=== PATIENT | female | born 1965 | race Caucasian/White ===

== ENCOUNTER 2017-05-10 19:30 | Outpatient (CLI) | payer BC | END 2017-05-10 19:31 | disposition home or self-care (01) | LOC: SLEEPLAB 19:30 | PROVIDERS: ATTEND Family Medicine | DX: G47.33 Obstructive sleep apnea (adult) (pediatric) (principal); G47.9 Sleep disorder, unspecified; F51.9 Sleep disorder not due to a substance or known physiological condition, unspecified; F41.8 Other specified anxiety disorders; R51 Headache; R06.83 Snoring | CPT/HCPCS: 95810 ==

== ENCOUNTER 2017-06-03 20:30 | Outpatient (CLI) | payer BC | END 2017-06-03 20:31 | disposition home or self-care (01) | LOC: SLEEPLAB 20:30 | PROVIDERS: ATTEND Family Medicine | DX: G47.33 Obstructive sleep apnea (adult) (pediatric) (principal); F51.9 Sleep disorder not due to a substance or known physiological condition, unspecified; F41.8 Other specified anxiety disorders; R51 Headache | CPT/HCPCS: 95811 ==

== ENCOUNTER 2017-06-06 09:30 | Inpatient (IN) | payer BC ==
[2017-06-06 10:03] VITALS: BMI 44.6
--- NOTE | 2017-06-06 16:52 | HP ---
HISTORY OF PRESENT ILLNESS: Ms. Gomez is a 52-year-old female, who is known to our practice, as she had an L4-5 laminectomy, removal of right synovial cystectomy in 12/2015, which was complicated with a postoperative infection in January that required washout operation. The pain was initially better, t hen had gotten worse over the past 6 months. She had pain, numbness and tingling in the L5 dermatome on the right that is constant. The pain is made worse with lying flat and when walking. The pain i s made somewhat better with gabapentin and analgesics. She has had physical therapy and several inje ctions including an L4-5 and TFESI and potential lysis of adhesions on 03/08/2017 as well as past SI joint injections at L5-S1 TFESI injections with Dr. Duque that has given little relief. IMAGING: MRI of the lumbar spine at [facility], flexion, extension views x-rays at [facility] [place]. REVIEW OF SYSTEMS: Ten-point review of systems is completed and is otherwise negative unless stated in the HPI. PAST MEDICAL HISTORY: Nephrolithiasis, depression, short bowel syndrome, hypertension, Crohn's disea se. Neurovascular cavernous malformation, chronic back pain, iron deficiency anemia, [facility], admitted on 11/24/2016. PAST SURGICAL HISTORY: Multiple sinus surgeries in the , colonoscopy in the gallbladder 1 999, section in 2000, gastric bypass with Dr. Avilez in 2008, exploratory laparotomy, intest inal stricture in 2009, gastric bypass reversal in 2010, EGD and colonoscopy, single ulcer terminal i leum repeat in [address] Pham in 02/2014. Decompressive laminectomy L4-L5 with resection of L 4-L5, synovial cyst. Dr. Muniz in 12/17/2015, reopening of lumbar incision due to postop infecti on on 06/15/2016, removal of scar tissue from previous back surgery by Dr. Duque on 01/29/2017; c audal VICTOR M, TFESI bilateral L5-S1, TFESI, bilateral L5-S1. Right SI joint injection and left SI joint injection. HOSPITALIZATIONS: For surgeries, lumbar cyst removal in 12/2015 surgery due to the hospital infectio n in 01/2016. PSYCHIATRIC: Admitted in 10/2016. FAMILY HISTORY: Father is alive, prostate cancer, obesity, diagnosis of hypertension. Mother is ali ve, has diagnosis of breast cancer. Siblings are alive, diagnosed with nothing. Children are alive, has 1 son and has ADHD. Family history of migraines and cancer. SOCIAL HISTORY: The patient is a former smoker. She quit in 1998. She smokes less than a half pack a day. She denies using alcohol or any illicit drugs. She is . MEDICATIONS: 1. Pantoprazole sodium 40 mg tablet delayed release 1 tablet orally once a day. 2. Potassium gluconate 595 mg capsule 2 orally. 3. Tizanidine 4 mg tablet 1 tablet orally at bedtime. 4. Creon 36,000 unit capsule delayed release particles 2 tabs orally q.i.d. 5. Gabapentin 300 mg capsule 1 capsule 3 times a day. 6. Vitamin B1 100 mg tablet 1 tablet orally once a day. 7. Vitamin D3 5000 units once a day. 8. Multivitamin adult oral only. 9. Hydrochlorothiazide 12.5 mg capsule 1 capsule once a day. 10. Trazodone HCL 50 mg capsule take 3 capsules by mouth as needed for insomnia. 11. Mirtazapine 15 mg tablet 1 tablet at bedtime orally once a day. 12. Lyrica 75 mg capsule 1 capsule orally with twice a day. 13. Adderall 20 mg capsule extended release 24 hour 1 capsule in the morning orally once a day. 14. Adderall 10 mg tablet 1 tablet in the afternoon orally once a day. 15. Tylenol with Codeine #4 300-60 mg capsule 1-2 tablets orally q.8 hours p.r.n. for pain. 16. Flonase 50 mcg/ACT suspension 1 spray in each nostril nasally once a day. MEDICATION LIST: Reviewed and reconciled with the patient. ALLERGIES: LEVOFLOXACIN hives, swelling, and ADHESIVE bandages and blisters. PHYSICAL EXAMINATION: HEENT: Normocephalic, atraumatic. Hearing intact. Moist mucous membranes. Trachea midline. EYES: Pupils are equal and reactive to light. Extraocular muscles are intact. Sclerae is white, no nicteric deficits. PSYCHIATRIC: Normal mood and affect. CARDIOVASCULAR/CARDIOPULMONARY: No cyanosis or clubbing noted. Intact pedal pulses bilaterally. MUSCULOSKELETAL: 4/5 strength in the right tibialis anterior, extensor hallucis longus. Sensory def icits in the right L5 dermatome, nontender to palpation in the midline lumbar spine. RESPIRATORY: Even respirations, good effort in all lung peck, sound clear with no wheezing or crac kles. NEUROLOGIC: Cranial nerves II-XII are grossly intact. Speech is fluent. She answers to my question s appropriately. ASSESSMENT: 1. Lumbago with sciatica of the right side. 2. Chronic lumbar radiculopathy. PLAN: Dr. Muniz discussed at length with the operation redo laminectomy L4-L5 with a TLIF and sy novial cyst removal. She is in agreement with that plan. The risks, benefits, and another possible complications of surgery were discussed and the patient was fully aware of the risks of surgery. She would like to proceed with neurosurgical intervention. MRI and x-rays are at [facility]. If t here are any further questions, please feel free to contact Neurosurgery.
[2017-07-03] MEDS ORDERED: CEFAZOLIN/Water 2 GM/20 ML SYRINGE ONE (06:00)
[2017-07-03] MEDS ORDERED: Famotidine/PF 20 mg/2ml Vial ONE (06:14)
[2017-07-03] MEDS ORDERED: Bupivacaine/Epinephrine 0.25% 30 ML VIAL ONE (06:16)
[2017-07-03] MEDS ORDERED: Thrombin 5000 UNITS/5 ML VIAL ONE (06:16)
[2017-07-03] MEDS ORDERED: Sodium Chloride 0.9% 20 ML ONE (06:16)
[2017-07-03] MEDS ORDERED: Vecuronium 10 MG VIAL ONE ×2 (06:45→09:02)
[2017-07-03] MEDS ORDERED: Albumin 5% 0 ML ONE (06:46)
[2017-07-03] MEDS ORDERED: Midazolam HCl 2 mg/2 ml Vial ONE ×2 (06:49→12:57)
[2017-07-03] MEDS ORDERED: Fentanyl 250 MCG/5 ML VIAL ONE (07:06)
[2017-07-03] MEDS ORDERED: Lidocaine 1% PF 5 ML VIAL ONE (09:02)
[2017-07-03] MEDS ORDERED: Glycopyrrolate 0.2 MG/ML 5 ML SYRINGE ONE (09:02)
[2017-07-03] MEDS ORDERED: Propofol 200 MG/20 ML VIAL ONE (09:02)
[2017-07-03] MEDS ORDERED: Ondansetron HCl/PF 4 MG/2 ML Vial ONE (09:02)
[2017-07-03] MEDS ORDERED: Dexamethasone 20 MG/5 ML VIAL ONE (09:02)
[2017-07-03] MEDS ORDERED: Metoclopramide HCl 10 MG/2 ML VIAL ONE (09:02)
[2017-07-03] MEDS ORDERED: Fentanyl 100 MCG/2 ML VIAL ONE ×4 (09:51→13:33)
[2017-07-03] MEDS ORDERED: HYDROmorphone 0.5 MG/0.5 ML SYRINGE ONE ×4 (12:19→14:13)
[2017-07-03] MEDS ORDERED: Cyclobenzaprine 10 MG TAB PO PRN (12:43)
[2017-07-03] MEDS ORDERED: traMADol HCl 50 MG TAB PO PRN (12:43)
[2017-07-03] MEDS ORDERED: Acetaminophen/Codeine 30-300mg Tablet PO PRN (12:43)
[2017-07-03] MEDS ORDERED: Ondansetron HCl/PF 4 MG/2 ML Vial IVP PRN ×2 (12:43→13:08)
[2017-07-03] MEDS ORDERED: Morphine 4 MG/ML VIAL SLOW IVP PRN (12:43)
[2017-07-03] MEDS ORDERED: HYDROmorphone 2 MG/ML VIAL SLOW IVP PRN (13:08)
[2017-07-03] MEDS ORDERED: Morphine Sulfate 2 MG/ML SYRINGE SLOW IVP PRN (13:08)
[2017-07-03] MEDS ORDERED: Promethazine HCl 25 MG/ML VIAL SLOW IVP PRN (13:08)
[2017-07-03] MEDS ORDERED: Meperidine HCl/PF 25 MG/ML VIAL SLOW IVP PRN (13:08)
[2017-07-03] MEDS ORDERED: Promethazine HCl 25 MG/ML VIAL IM PRN (13:08)
--- NOTE | 2017-07-03 13:16 | OP ---
DATE OF PROCEDURE: 07/03/2017 SURGEON: Alexandra Muniz M.D. SALES PERFORMANCE ANALYST: Joseph Hines PA-C PREOPERATIVE INDICATION: Treat pain, prevent neurological deterioration. PREOPERATIVE DIAGNOSES: Unstable spondylolisthesis L4-L5, bilateral synovial cyst formation prior to surgery L4-L5, L5 radiculopathies, right greater than left. POSTOPERATIVE DIAGNOSES: Unstable spondylolisthesis L4-L5, bilateral synovial cyst formation prior t o surgery L4-L5, L5 radiculopathies, right greater than left. PROCEDURES: Reopening lumbar incision, repeat decompression L4-L5 with laminectomy, medial facetecto my, foraminotomy, transforaminal lumbar interbody arthrodesis L4-L5, placement of intervertebral biom echanical device L4-L5, pedicle screw and dionne instrumentation and posterolateral arthrodesis L4-L5, l ocal morselized autograft, morselized Allograft, operating microscope. PREOPERATIVE MEDICATIONS: Ancef 2 grams IV. DRAIN NUMBER: Zero. DRAIN TYPE: None. OPERATIVE DICTATION: The patient was brought to the operating room. General endotracheal anesthesia was induced. The patient was positioned prone on the operating table on the Anand frame with appr opriate padding for the chest and hips. A lateral fluoro radiograph confirmed that the previous inci davina would give us access to the L4-5 interval of the lumbosacral spine. The lumbar skin was sterile ly prepped and draped. We opened with a 10 blade knife and controlled bleeding with bipolar and mono polar cautery. We used monopolar cautery to dissect through subcutaneous scar tissue to thoracodorsa l fascia. We incised the fascia in the midline and reflected the paraspinal muscles and scar tissue off the spinous process of L3 and L3-L4 facet joints and L4 and L4-L5 facet joints and the top of L5. A lateral fluoro radiograph confirmed the levels upon which we were operating. A self-retaining re tractor was placed. We carried our dissection over the facet joints to identify the L4 and L5 transv erse processes bilaterally. We then used an angle curet on separate scar tissue from the confines of the laminectomy. The operative microscope was brought into the field. Under microscopic magnification using microsurgical techniques, we widened our laminectomy defect. W e performed medial facetectomy at L3-L4 and L4-L5. We identified the L4 nerve root from the takeoff from the dura all the way out the foramen. In a similar fashion, we identified the L5 nerve root and scar tissue followed and performed foraminotomies there as well. We turned our attention to arthrod esis. We removed the entire facet joint on the right at L4-L5 and through the facetectomy and wide f oraminotomy. We accessed the intervertebral space. We removed disk contents using curettes and meng eurs. We measured the height of the L4-L5 interspace with a bone rasp to 11 mm. We prepared the end plates for grafting with curets. An 11 mm PEEK graft was brought into the field. Our laminectomy an d facetectomy bone was carefully morcellized on the back table added to demineralized bone matrix and uses infuses substrate. We packed PEEK graft with the fusion substrate and advanced into the inters paces under radiographic guidance to the appropriate depth. We turned our attention to pedicle screw instrumentation. The operative microscope was taken back out of the field. Using bony anatomic radha dmarks, palpation of the medial portion of the pedicles and lateral fluoro radiograph as a guide, we chose entry points for pedicle screws at L4 and L5 bilaterally. We started our trajectories with by drilling our entry points. We used the bone awl to create trajectories through the pedicles and then we tapped these trajectories using a 5.5 mm tap. We placed 6.5 mm diameter screws at L4 and L5 bila terally. A 360 degree image set was generated with our isocenter C-arm. This showed adequate positi on of all our instrumentation. We irrigated copiously with bacitracin irrigation. We brought rods d own into the screw heads and tightened caps over the rods. Using esbibl-[id number] mechanism, we ensured adequate tightness. We decorticated the transverse processes of L4 and L5 bilaterally and l eft demineralized bone matrix and morselized autograft over the decorticated bone as our posterolater al fusion substrate. Vancomycin powder was added to the wound. We ensured that the L4 nerve roots w ere well decompressed after applying some compression before final tightening of the screws. We clos ed the wound in anatomic layers. We applied a sterile dressing. This was a clean case and no contam ination.
[2017-07-03] MEDS ORDERED: diphenhydrAMINE 50 MG/ML VIAL ONE (13:41)
[2017-07-03] MEDS ORDERED: Loperamide HCl 2 MG CAP PO PRN (13:50)
[2017-07-03] MEDS: Pancrelipase DR 12000 1 CAP PO SCH ×3 (15:27→21:39)
[2017-07-03] MEDS: CEFAZOLIN/Water 2 GM/20 ML SYRINGE SLOW IVP SCH ×2 (15:27→21:02)
[2017-07-03] MEDS: Sodium Chloride 0.9% 1,000 ML IV SCH (15:27)
[2017-07-03] MEDS: Morphine 4 MG/ML VIAL SLOW IVP PRN ×3 (15:41→21:02)
[2017-07-03] MEDS: Acetaminophen/Codeine 30-300mg Tablet PO PRN ×2 (17:56→21:01)
[2017-07-03] MEDS: Mirtazapine 15 MG TAB PO SCH (21:00)
[2017-07-03] MEDS: Folic Acid 1 MG TAB PO SCH (21:00)
[2017-07-03] MEDS ORDERED: HYDROCODONE BITARTRATE 20 MG PO SCH (21:00)
[2017-07-03] MEDS: traZODone HCl 150 MG TAB PO SCH (21:00)
[2017-07-03] MEDS: hydrOXYzine 25 MG TAB PO SCH (21:01)
[2017-07-03] MEDS: Pregabalin 75 MG CAP PO SCH (21:01)
[2017-07-03] MEDS: Potassium Chloride 8 MEQ TAB PO SCH (21:39)
[2017-07-04] MEDS: Acetaminophen/Codeine 30-300mg Tablet PO PRN ×5 (00:36→23:49)
[2017-07-04] MEDS: Morphine 4 MG/ML VIAL SLOW IVP PRN ×4 (00:36→15:10)
[2017-07-04] MEDS: Sodium Chloride 0.9% 1,000 ML IV SCH ×2 (03:06→14:34)
--- NOTE | 2017-07-04 06:30 | PRG ---
DATE OF SERVICE: 07/04/2017 Ms. Gomez is a 52-year-old female who I saw in her room this morning. She is status post 1 day from a lumbar laminectomy and fusion at L4-L5. She has been doing well overnight and her vital signs hav e been stable and there have been no acute events. Today I expect her to work with physical therapy and I talked to her about the importance of ambulating as much as possible. Our goal is to have her walk at least 300 feet in the hallways. She has an LSO brace on that she received yesterday when she got to the 3rd floor. She is able to tolerate regular diet and her pain is well controlled with eric n medication. If she does well with physical therapy today, she is concerned about controlling the p ain states she would like to stay until tomorrow morning. If there are any further questions, please feel free to contact Neurosurgery.
[2017-07-04] MEDS ORDERED: CEFAZOLIN/Water 2 GM/20 ML SYRINGE SLOW IVP SCH (07:00)
[2017-07-04] MEDS ORDERED: AMPHETAMINE SULFATE PO SCH (09:00)
[2017-07-04] MEDS: Hydrochlorothiazide 25 MG TAB PO SCH (09:30)
[2017-07-04] MEDS: Pancrelipase DR 12000 1 CAP PO SCH ×4 (09:31→22:00)
[2017-07-04] MEDS: Pregabalin 75 MG CAP PO SCH ×2 (09:31→21:56)
--- NOTE | 2017-07-04 11:44 | PRG ---
DATE OF SERVICE: 07/04/2017 Neurosurgery progress note SUBJECTIVE: I saw Ms. Gomez this morning in her hospital room. She is 1 day out from a repeat deco mpression at L4-L5 along with transforaminal lumbar interbody arthrodesis at that interspace. [facility], we noted some significant instability at that joint with very wide facets and exuberant synoviu m. We dissected all the nerves free, we decompressed well and then fixed her instability. Overnight, her vitals has been stable. T-max has been 99.7. After one of her previous operation, lang parker developed a postoperative infection, so we will be watching carefully. Neurologically, she is well . Today, she is going to work with physical therapy and she is not quite ready for independence or a ctivities of daily living yet. Anticipate discharge tomorrow.
[2017-07-04] MEDS: hydrOXYzine 25 MG TAB PO SCH (21:50)
[2017-07-04] MEDS: traZODone HCl 150 MG TAB PO SCH (21:57)
[2017-07-04] MEDS: Mirtazapine 15 MG TAB PO SCH (21:57)
[2017-07-04] MEDS: Potassium Chloride 8 MEQ TAB PO SCH (22:01)
[2017-07-04] MEDS: Folic Acid 1 MG TAB PO SCH (22:01)
[2017-07-05] MEDS: Morphine 4 MG/ML VIAL SLOW IVP PRN ×4 (04:52→17:23)
[2017-07-05] MEDS: Sodium Chloride 0.9% 1,000 ML IV SCH ×2 (04:56→17:24)
[2017-07-05] MEDS: Acetaminophen/Codeine 30-300mg Tablet PO PRN ×5 (06:18→22:23)
--- NOTE | 2017-07-05 07:02 | PRG ---
DATE OF SERVICE: 07/05/2017 Ms. Gomez is a 52-year-old female I saw in her room this morning. She is status post from a lumbar decompression and fusion at L4-L5. She has been doing well overnight; however, she did have some eric n early this morning that continued, which she is being treated with morphine and Tylenol #3. I enco uraged her to get up and walk around as much as possible. She will let us know if she is interested in leaving the hospital and being discharged home by noon. If that is the case, please call me and I will put in the discharge orders at that time. If there are any further questions, please feel free to contact Neurosurgery.
--- NOTE | 2017-07-05 07:11 | PRG ---
DATE OF SERVICE: 07/05/2017 I saw Pattie Gomez in her hospital room this morning. She is 2 days out from a redo lumbar bridger ectomy and a transforaminal lumbar interbody arthrodesis at L4-L5. Her radiating leg pain is much be tter. There is still some residual numbness in the legs, right greater than left, as expected. She had some back pain yesterday, but was able to get out of bed with physical therapy and with nursing. Record of vital signs looks stable with a T-max of 99.7 and a blood pressure this morning of 110/62. Ms. Gomez is resting comfortably. She is working on some needle work for her niece and nephew while in bed. When she rolls over and moves to the side, there is some significant pain, but it is not af fecting her legs. I do not find any new neurological deficits. Ms. Gomez, once she is safe for all of her activities of daily living, is ready for discharge. This could happen as early as lunch time today. If she needs another day in the hospital for pain contro l, we can make that happen, but she looks forward to discharge as soon as possible and so do we.
[2017-07-05] MEDS: Pregabalin 75 MG CAP PO SCH ×2 (08:30→22:21)
[2017-07-05] MEDS: Hydrochlorothiazide 25 MG TAB PO SCH (08:31)
[2017-07-05] MEDS: Pancrelipase DR 12000 1 CAP PO SCH ×4 (08:31→22:20)
[2017-07-05] MEDS: Mirtazapine 15 MG TAB PO SCH (22:20)
[2017-07-05] MEDS: Potassium Chloride 8 MEQ TAB PO SCH (22:21)
[2017-07-05] MEDS: hydrOXYzine 25 MG TAB PO SCH (22:22)
[2017-07-05] MEDS: traZODone HCl 150 MG TAB PO SCH (22:22)
[2017-07-05] MEDS: Folic Acid 1 MG TAB PO SCH (22:32)
[2017-07-06] MEDS: Acetaminophen/Codeine 30-300mg Tablet PO PRN ×3 (02:48→14:51)
[2017-07-06] MEDS: Morphine 4 MG/ML VIAL SLOW IVP PRN ×2 (05:37→08:14)
[2017-07-06] MEDS ORDERED: Magnesium Citrate 300 ML BOT PO SCH (06:45)
--- NOTE | 2017-07-06 07:18 | PRG ---
DATE OF SERVICE: 07/06/2017 I saw Ms. Gomez in her hospital room this morning. She is postoperative day #3 from decompression f usion in the lumbar spine at L4-5 for recurrent radiculopathy and instability. Ms. Gomez went the night without IV narcotics. She feels reasonably well this morning. There is a bit of constipation. She would like to attempt a bowel movement before getting out of the hospital l ater today. We will make arrangements for discharge and give her bottle of mag citrate this morning. After lunch time she can be discharged home. Follow up arrangements are made through our office an d our scheduling coordinators will contact her with the date and time of her followup appointment. Susan parker went over postoperative incisional care and activity restrictions.
[2017-07-06] MEDS: Hydrochlorothiazide 25 MG TAB PO SCH (08:13)
[2017-07-06] MEDS: Pregabalin 75 MG CAP PO SCH (08:13)
[2017-07-06] MEDS: Pancrelipase DR 12000 1 CAP PO SCH ×2 (08:19→13:49)
[2017-07-06] MEDS: Sodium Chloride 0.9% 1,000 ML IV SCH (08:20)
[2017-07-06 08:30] VITALS: TEMP 99.1
[2017-07-06 12:09] VITALS: BP 119/77
[2017-07-06] MEDS ORDERED: Fleet Enema 133 ML BOT FS SCH (14:30)
== END 2017-07-06 16:12 | disposition home or self-care (01) | DRG 460 ==
LOC: SURG A 07-03 05:44
PROVIDERS: ADMIT Neurological Surgery; ATTEND Neurological Surgery
PROC: 0SG00AJ Fusion of Lumbar Vertebral Joint with Interbody Fusion Device, Posterior Approach, Anterior Column, Open Approach (ICD-10-PCS; principal; 2017-07-03)
DX: M43.16 Spondylolisthesis, lumbar region (principal); K50.90 Crohn's disease, unspecified, without complications; I10 Essential (primary) hypertension; M54.16 Radiculopathy, lumbar region; F32.9 Major depressive disorder, single episode, unspecified; K59.00 Constipation, unspecified; M71.38 Other bursal cyst, other site; Z87.891 Personal history of nicotine dependence
CPT/HCPCS: 76001; A4216; C1713; C1768; G8978-GP-CI; G8979-GP-CI; G8980-GP-CI; J0131; J1100; J1170; J1200; J2001; J2250; J2270; J2405; J2704; J2765; J3010; J3370; J3490; P9045; S0028

== ENCOUNTER 2017-06-06 09:38 | Outpatient (CLI) | payer BC ==
[2017-06-06 11:21] LABS: Hematocrit 42.2 % (36.0-47.0); Mean Platelet Volume 7.9 fL (7.4-10.4); Red Blood Cell (RBC) Count 4.32 mill/uL (4.20-5.40); White Blood Cell (WBC) Count 6.2 thou/uL (4.8-10.8)
[2017-06-06 11:25] LABS: Anion Gap 11 mmol/L (10-20); BUN (Urea Nitrogen) 18 mg/dL (9.8-20.1); Calc. Creatinine Clearance 0 mL/min (70-130); Calcium 9.3 mg/dL (7.8-10.44); Carbon Dioxide 29 mmol/L (22-29); Chloride 101 mmol/L (98-107); Estimated GFR-MDRD 71; PTT 28.6 SEC (22.9-36.1)
== END 2017-06-06 09:39 | disposition home or self-care (01) ==
LOC: LABBT 09:38
PROVIDERS: ATTEND Neurological Surgery
DX: Z01.812 Encounter for preprocedural laboratory examination (principal); M43.16 Spondylolisthesis, lumbar region
CPT/HCPCS: 80048; 85027; 85610; 85730; 93005; 93010

== ENCOUNTER 2017-10-20 12:41 | Outpatient (CLI) | payer BC ==
--- NOTE | 2017-10-20 13:29 | RAD ---
LUMBAR SPINE TWO VIEWS: HISTORY: Postop followup. COMPARISON: Lumbar films from 05/02/2013. FINDINGS: Pedicle screws and rods transfix L4 and L5. An interbody implant is noted at L4-L5. Hardware appear s adequately positioned. Posterior alignment is maintained. Vertebral bodies maintain height. Disk spaces are preserved. Mild degenerative spurring. Posterior laminectomy changes at L4-L5. IMPRESSION: Postoperative and degenerative changes of the lumbar spine noted, as described. POS: [facility]
== END 2017-10-20 12:42 | disposition home or self-care (01) ==
LOC: TBSIIMAG 12:41
PROVIDERS: ATTEND Neurological Surgery
DX: M47.26 Other spondylosis with radiculopathy, lumbar region (principal); Z98.1 Arthrodesis status
CPT/HCPCS: 72100

== ENCOUNTER 2018-02-22 08:00 | Inpatient (IN) | payer BC ==
[2018-02-22 08:35] VITALS: BMI 47.8
[2018-03-06] MEDS ORDERED: traMADol HCl 50 MG TAB PO PRN ×3 (07:07→09:19)
[2018-03-06] MEDS ORDERED: HYDROcodone/Acetaminophen 10/325 mg Tablet PO PRN ×4 (07:07→09:19)
[2018-03-06] MEDS ORDERED: Acetaminophen 325 MG TAB PO PRN (07:07)
[2018-03-06] MEDS ORDERED: Zolpidem Tartrate 5 MG TAB PO PRN ×3 (07:07→13:16)
[2018-03-06] MEDS ORDERED: Ondansetron HCl/PF 4 MG/2 ML Vial IVP PRN ×4 (07:07→13:16)
[2018-03-06] MEDS ORDERED: diphenhydrAMINE 25 MG CAP PO PRN ×2 (07:07→13:16)
[2018-03-06] MEDS ORDERED: Promethazine HCl 25 MG/ML VIAL IM PRN ×4 (07:07→13:16)
[2018-03-06] MEDS ORDERED: Fentanyl 100 MCG/2 ML VIAL SLOW IVP PRN ×2 (07:07)
--- NOTE | 2018-03-06 07:25 | RAD ---
TWO VIEWS OF THE CHEST: COMPARISON: 02/22/18. HISTORY: Preoperative radiograph. FINDINGS: Two views of the chest show normal sized cardiomediastinal silhouette. There is no evidence of consol idation, mass, or pleural effusion. The bones are unremarkable. IMPRESSION: No evidence of acute cardiopulmonary disease. POS: [facility]
[2018-03-06] MEDS ORDERED: Midazolam HCl 2 mg/2 ml Vial ONE (07:36)
[2018-03-06] MEDS ORDERED: Sodium Chloride 0.9% 100 ML ONE (07:42)
[2018-03-06] MEDS ORDERED: Vancomycin HCl 1.5 GM in Sodium Chloride 0.9% 250 ML 300 ML IVPB SCH (07:45)
[2018-03-06] MEDS ORDERED: Famotidine/PF 20 mg/2ml Vial ONE (07:58)
[2018-03-06] MEDS ORDERED: Loperamide HCl 2 MG CAP PO PRN (08:26)
[2018-03-06] MEDS ORDERED: AMPHETAMINE SULFATE PO SCH (09:00)
[2018-03-06] MEDS ORDERED: Ropivacaine HCl/PF 250 ML in Premix Bag 1 BAG NERVE BLCK SCH (09:19)
[2018-03-06] MEDS ORDERED: Fentanyl 100 MCG/2 ML VIAL IV PRN (09:20)
[2018-03-06] MEDS ORDERED: Fentanyl 100 MCG/2 ML VIAL ONE ×4 (10:04→12:03)
[2018-03-06] MEDS ORDERED: Promethazine HCl 25 MG/ML VIAL SLOW IVP PRN (10:21)
[2018-03-06] MEDS ORDERED: HYDROmorphone 2 MG/ML VIAL ONE (11:12)
--- NOTE | 2018-03-06 11:59 | OP ---
DATE OF PROCEDURE: 03/06/2018 PREOPERATIVE DIAGNOSIS: End-stage tricompartmental osteoarthritis, left knee. POSTOPERATIVE DIAGNOSIS: End-stage tricompartmental osteoarthritis, left knee. OPERATIVE PROCEDURE: Cemented cruciate-sparing computer-assisted navigated left total knee arthropla sty. SURGEON: Umang Bolaños M.D. BLENDER/BRAZE APPLICATOR: Angel Foreman PA-C. ANESTHESIA: General via laryngeal mask airway augmented with indwelling femoral block with a single shot sciatic block. COMPONENTS USED: [employer] Triathlon primary cemented cruciate-sparing size 4 femoral comp onent with a primary cruciate-sparing cemented tibial component size 4, 9 mm polyethylene fixed beari ng insert, A29 patellar button. TOURNIQUET TIME: 63 minutes at 300 mmHg. ESTIMATED BLOOD LOSS: Less than 100. Input was 1 liter of crystalloid. Output 200 mL of clear yell ow urine. 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 DRAINS: None. SPECIMENS: None. COMPLICATIONS: None. COUNTS: Correct. INDICATIONS FOR SURGERY: Pattie is a 53-year-old white female, who has had progressive left knee pain amplified with standing and walking for the last 5-7 years. She has failed conservative managem ent and elected to proceed with total knee arthroplasty as definitive treatment of her pain. PROCEDURE IN DETAIL: After informed consent was obtained in the preoperative holding area. The grayson ent was taken to the operative suite where general anesthesia was induced. Once adequate level of ge neral anesthesia was obtained, the patient was positioned and a well-padded tourniquet was placed christiane und the left proximal thigh. The left lower extremity was then prepped and draped in the usual steri le fashion. Prior to exsanguination, a time out was called and all members of the surgical team agre ed upon site, surgeon, and patient. The extremity was then exsanguinated and the tourniquet was rais ed. A midline longitudinal incision was then made directly over the patella extending two fingerbrea dths above the superior pole of the patella and two fingerbreadths inferior to the inferior patellar pole of the patella. Deeper subcutaneous layers were dissected sharply and local bleeding was contro lled with Bovie electrocautery. A quad tendon longitudinal split was then made sharply and a median parapatellar arthrotomy was carried out both sharp and with Bovie electrocautery, carried down to one fingerbreadth medial to the tibial tubercle. The knee was then placed into flexion and the patella was everted nicely, and a copious fat pad ectomy was performed allowing for greater exposure of the t ibia. The computer-assisted distal femoral fiducial was then placed and pinned firmly, and the dista l femoral cutting guide was pinned firmly into place. The oscillating saw was then used to remove th e appropriate amount of bone. The 4-in-1 cutting block was then placed on the distal femur and the o scillating saw was used to remove the appropriate amount of bone off of the anterior, posterior, and chamfer cuts. After completion of bone cuts, the anterior cruciate ligament was resected sharply and the posterior cruciate ligament retractor was placed and the tibia was subluxed for better exposure. Partial meniscectomies were carried out, and the tibial computer-assisted fiducial was pinned, and the cutting guide was placed. Oscillating saw was then used to remove the bone with Hohmann retracto rs used to take care and protect the collateral ligaments. After the tibial resection was performed, a laminar welfare manager was placed in between the freshened bone cuts. The knee placed at 90 degrees and further bilateral meniscectomies were carried out, and the curved osteotome and curettage was used t o remove any excess bone spurs in the posterior compartment. The trial femoral component, tibial bas eplate were placed with the appropriate polyethylene trial insert with an appropriate polyethylene sp acer and patellar button. The knee was taken through full range of motion with flexion and extension from 0-90 degrees and patellar broach squarely in the trochlea without any squinting or subluxation noted. The knee was also stable to varus and valgus stressing at 0, 15, 45, and 90 degrees of flexio n. The drawer was negative. All trial components were then removed and the keel punch was used to pr ovide the appropriate defect in the tibia with a mallet. The freshened bone cuts were copiously irri gated with pulsatile lavage of about 1-1/2 liters to remove all excess debris. The freshened bone cu ts were then dried and with suction and lap sponge. The knee was placed in flexion and retractors we re placed to provide access to all bone cuts. Tobramycin impregnated methyl methacrylate cement was then placed on the freshened bone cuts and implants which were malleted firmly into place. Curettage and [place] elevators were used to remove any excess bone cement. The knee was placed into full exten davina and the patellar button was placed under compression, and the cement was allowed to cure. Once completed, the components were again taken through full range of motion and copious irrigation of the knee was carried out with another liter of normal saline. All components were inspected fully with full range of motion and varus and valgus stressing. There was no laxity noted and full extension was observed clinically. Primary closure was accomplished with #2 interrupted Vicryl stitch of the arth rotomy defect. This was oversewn with a #2 running Quill barbed stitch. The subcutaneous layer was then closed with a running 0 barbed Monocryl stitch and skin closure accomplished with a running subc uticular 3-0 Monocryl barbed Quill stitch and augmented with cement on the skin. Tourniquet was lowe red. Good spontaneous return of distal pulses was noted clinically and a sterile dressing was applie d to the incision. The procedure was terminated without any complications. The patient was awakened in the operative suite and taken to the recovery room in stable condition.
--- NOTE | 2018-03-06 12:09 | RAD ---
TWO VIEWS OF THE LEFT KNEE: Comparison: None. History: Total left knee arthroplasty. FINDINGS: Two views of the left knee shows the patient to be status post left knee arthroplasty without perihar dware lucency or fracture. Air in the soft tissues is from recent surgery. IMPRESSION: Status post left knee arthroplasty without evidence of complication. POS: [facility]
[2018-03-06] MEDS ORDERED: Ropivacaine 0.5% HCl/PF (150 MG/30 ML VIAL) ONE ×2 (12:42→13:12)
[2018-03-06] MEDS ORDERED: Ropivacaine 0.2% HCl/PF (40 MG/20 ML VIAL) ONE (13:12)
[2018-03-06] MEDS ORDERED: Naloxone HCl 0.4 mg/ml Vial IV PRN (13:16)
[2018-03-06] MEDS ORDERED: diphenhydrAMINE 50 MG/ML VIAL IM/IV PRN (13:16)
[2018-03-06] MEDS ORDERED: Ondansetron HCl/PF 4 MG/2 ML Vial ONE (13:56)
[2018-03-06] MEDS ORDERED: Lidocaine 1% PF 5 ML VIAL ONE (13:56)
[2018-03-06] MEDS ORDERED: Ketorolac Tromethamine 30 MG/ML VIAL ONE (13:56)
[2018-03-06] MEDS ORDERED: PROPOFOL 200 MG/20 ML VIAL ONE (13:56)
[2018-03-06] MEDS ORDERED: Ketorolac Tromethamine 30 MG/ML VIAL IM SCH (14:00)
[2018-03-06] MEDS ORDERED: CEFAZOLIN/Water 2 GM/20 ML SYRINGE SLOW IVP SCH (14:00)
[2018-03-06] MEDS: Sodium Chloride 0.9% 1,000 ML IV SCH ×2 (16:03→18:19)
[2018-03-06] MEDS: Ferrous Gluconate 324 MG TAB PO SCH ×2 (16:16→21:33)
[2018-03-06] MEDS: Aspirin 81 mg Enteric Coated Tablet PO SCH ×2 (16:16→21:32)
[2018-03-06] MEDS: hydrOXYzine 25 MG TAB PO SCH ×3 (16:17→21:33)
[2018-03-06] MEDS: Lithium Carbonate 150 MG CAP PO SCH ×2 (16:18→21:39)
[2018-03-06] MEDS: Pregabalin 75 MG CAP PO SCH ×2 (16:18→21:37)
[2018-03-06] MEDS: Hydrochlorothiazide 25 MG TAB PO SCH (16:20)
--- NOTE | 2018-03-06 18:09 | PDOC.PN ---
- Subjective Encounter Start Date: 03/06/18 Encounter Start Time: 18:08 Pt seen for management of medical comorbidities, including hypertension. Denies chest pain, shortness of breath, fevers or chills. No nausea or vomiting. - Objective MAR Reviewed: Yes Vital Signs & Weight: Vital Signs (12 hours) Temp Pulse Resp BP Pulse Ox 03/06/18 16:48 98.6 F 81 20 142/63 H 99 03/06/18 16:00 98.6 F 81 20 99 Weight Weight 270 lb Additional Labs: Recent labs reviewed by me Phys Exam - Physical Examination Morbid obesity HEENT: moist MMs Neck: supple Respiratory: clear to auscultation bilateral Cardiovascular: RRR Gastrointestinal: soft s/p left knee surgery Neurological: moves all 4 limbs Psychiatric: normal affect Dx/Plan (1) HTN (hypertension) Code(s): I10 - ESSENTIAL (PRIMARY) HYPERTENSION Status: Chronic Comment: Add PRN IV hydralazine for blood pressure spikes. (2) EMILIANO on CPAP Code(s): G47.33 - OBSTRUCTIVE SLEEP APNEA (ADULT) (PEDIATRIC); Z99.89 - DEPENDENCE ON OTHER ENABLING MACHINES AND DEVICES Status: Chronic Comment: Stable, continue CPAP while asleep (3) Crohns disease Code(s): K50.90 - CROHN'S DISEASE, UNSPECIFIED, WITHOUT COMPLICATIONS Status: Chronic Comment: sulfasalazine on hold - Plan * . Review of Systems - Medications/Allergies Allergies/Adverse Reactions: Allergies Allergy/AdvReac Type Severity Reaction Status Date / Time adhesive Allergy Verified 02/22/18 08:35 levofloxacin Allergy Verified 02/22/18 08:35 Medications: Current Medications Acetaminophen (Tylenol) 650 mg PO Q4H PRN PRN Reason: BRATH/ T > 101F; Mild Pain (1-3) Aspirin (Ecotrin) 81 mg PO BID [facility] Last Admin: 03/06/18 16:16 Dose: Not Given Cefazolin Sodium (Ancef) 2 gm SLOW IVP 0200,1000,1800 [facility] Stop: 03/07/18 02:01 Diphenhydramine HCl (Benadryl) 25 mg PO Q6H PRN PRN Reason: Itching Diphenhydramine HCl (Benadryl) 25 mg IM/IV Q3H PRN PRN Reason: Itching Diphenhydramine HCl (Benadryl) 25 mg PO Q3H PRN PRN Reason: Itching Ferrous Gluconate (Fergon) 324 mg PO BID [facility] Last Admin: 03/06/18 16:16 Dose: Not Given Folic Acid (Folvite) 1 mg PO HS [facility] Hydrochlorothiazide (Hydrochlorothiazide) 12.5 mg PO DAILY [facility] Last Admin: 03/06/18 16:20 Dose: Not Given Hydroxyzine HCl (Atarax) 50 mg PO TID [facility] Last Admin: 03/06/18 16:35 Dose: 50 mg Sodium Chloride (Normal Saline 0.9%) 1,000 mls @ 100 mls/hr IV .Q10H [facility] Last Admin: 03/06/18 16:03 Dose: 1,000 mls Ropivacaine 250 ml/ Device 250 mls @ 10 mls/hr NERVE BLCK INF [facility] Fentanyl Citrate 2,000 mcg/ (Sodium Chloride) 100 mls @ 0 mls/hr IV INF PRN PRN Reason: Pain Iron/Minerals/Multivitamins (Theragran M) 1 tab PO DAILY [facility] Ketorolac Tromethamine (Toradol) 30 mg IVP Q6H PRN PRN Reason: Moderate Pain (4-6) Stop: 03/09/18 09:20 Ketorolac Tromethamine (Toradol) 30 mg IVP Q6H PRN PRN Reason: Moderate Pain 4-6 Stop: 03/09/18 13:17 [place] Carbonate ([place] Carbonate) 150 mg PO BID [facility] Last Admin: 03/06/18 16:18 Dose: Not Given Loperamide HCl (Imodium) 2 mg PO PRN PRN PRN Reason: Diarrhea/Loose Stools Mirtazapine (Remeron) 7.5 mg PO HS [facility] Naloxone HCl (Narcan) 0.2 mg IV Q5MIN PRN PRN Reason: RR <8 or pt obtun/unarousable Ondansetron HCl (Zofran) 4 mg IVP Q6H PRN PRN Reason: Nausea/Vomiting Ondansetron HCl (Zofran) 4 mg IVP Q6H PRN PRN Reason: Nausea/Vomiting Pantoprazole Sodium (Protonix) 20 mg PO [facility] Amphetamine Sulfate ([Evekeo] 25 Mg) 0 each PO DAILY [facility] Pneumococcal Polyvalent Vaccine (Pneumovax 23) 0.5 ml IM .ONCE ONE Stop: 03/07/18 09:01 Potassium Chloride (Slow-K 8 Meq) 8 meq PO HS [facility] Pregabalin (Lyrica) 75 mg PO BID [facility] Last Admin: 03/06/18 16:18 Dose: Not Given Promethazine HCl (Phenergan) 12.5 mg IM Q4H PRN PRN Reason: Nausea Promethazine HCl (Phenergan) 12.5 mg IM Q4H PRN PRN Reason: Nausea/Vomiting Senna/Docusate Sodium (Senokot S) 2 tab PO BID [facility] Sodium Chloride (Flush - Normal Saline) 10 ml IVF PRN PRN PRN Reason: Saline Flush Tizanidine HCl (Zanaflex) 4 mg PO HS [facility] Zolpidem Tartrate (Ambien) 5 mg PO HSPRN PRN PRN Reason: Insomnia
[2018-03-06] MEDS: CEFAZOLIN/Water 2 GM/20 ML SYRINGE SLOW IVP SCH (18:23)
[2018-03-06] MEDS ORDERED: traZODone HCl 50 MG TAB PO SCH (21:00)
[2018-03-06] MEDS ORDERED: HYDROCODONE BITARTRATE 20 MG PO SCH (21:00)
[2018-03-06] MEDS: Folic Acid 1 MG TAB PO SCH (21:33)
[2018-03-06] MEDS: Mirtazapine 15 MG TAB PO SCH (21:37)
[2018-03-06] MEDS: tiZANidine HCl 4 MG TAB PO SCH (21:38)
[2018-03-06] MEDS: Potassium Chloride 8 MEQ TAB PO SCH (21:39)
[2018-03-07] MEDS: CEFAZOLIN/Water 2 GM/20 ML SYRINGE SLOW IVP SCH (01:02)
[2018-03-07] MEDS: Sodium Chloride 0.9% 1,000 ML IV SCH ×2 (01:59→16:27)
[2018-03-07] MEDS: Ketorolac Tromethamine 30 MG/ML VIAL IVP PRN ×2 (04:41→11:23)
[2018-03-07 05:19] LABS: Hemoglobin 10.2 g/dL (12.0-16.0); Mean Corpuscular HGB CONC 33.1 g/dL (32.0-36.0); Mean Corpuscular Hemoglobin 32.2 pg (27.0-31.0); Mean Corpuscular Volume 97.3 fL (78.0-98.0); Mean Platelet Volume 7.5 fL (7.4-10.4); Platelet Count 141 thou/uL (130-400); RBC Distribution Width 14.5 % (11.5-14.5); Red Blood Cell (RBC) Count 3.17 mill/uL (4.20-5.40)
[2018-03-07] MEDS: fentaNYL Citrate/PF 2,000 MCG in Sodium Chloride 0.9% 60 ML IV PRN ×2 (07:19→18:09)
[2018-03-07] MEDS: Lithium Carbonate 150 MG CAP PO SCH ×2 (09:31→20:28)
[2018-03-07] MEDS: Senokot S 8.6-50 MG TAB PO SCH ×2 (09:33→20:28)
[2018-03-07] MEDS: Multivitamin W/ Minerals 1 TAB PO SCH (09:33)
[2018-03-07] MEDS: Hydrochlorothiazide 25 MG TAB PO SCH (09:34)
[2018-03-07] MEDS: Ferrous Gluconate 324 MG TAB PO SCH ×2 (09:34→20:28)
[2018-03-07] MEDS: Aspirin 81 mg Enteric Coated Tablet PO SCH ×2 (09:35→20:28)
[2018-03-07] MEDS: hydrOXYzine 25 MG TAB PO SCH ×3 (09:35→20:29)
[2018-03-07] MEDS: Pregabalin 75 MG CAP PO SCH ×2 (09:40→20:28)
--- NOTE | 2018-03-07 12:09 | PDOC.PN ---
- Subjective Encounter Start Date: 03/07/18 Encounter Start Time: 08:20 -: old records requested/rev Patient seen and examined. No new complaints. 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 - Objective MAR Reviewed: Yes Vital Signs & Weight: Vital Signs (12 hours) Temp Pulse Resp BP Pulse Ox 03/07/18 08:00 98.3 F 83 18 93 L 03/07/18 07:40 98.3 F 83 18 120/80 93 L 03/07/18 04:00 99.3 F 79 16 131/73 97 Weight Weight 270 lb I&O: 03/06/18 03/07/18 03/08/18 06:59 06:59 06:59 Intake Total 1650 Output Total 1900 Balance -250 Result Diagrams: 03/07/18 04:38 Phys Exam - Physical Examination Constitutional: NAD HEENT: PERRLA, moist MMs, sclera anicteric Neck: no JVD, supple Respiratory: no wheezing, no rales, no rhonchi Cardiovascular: RRR, no significant murmur, no rub Gastrointestinal: soft, non-tender, no distention, positive bowel sounds Musculoskeletal: no edema, pulses present left knee with brace and dressing, nerve block in place Neurological: non-focal, normal sensation, moves all 4 limbs Lymphatic: no nodes Psychiatric: normal affect, A&O x 3 Skin: no rash, normal turgor Dx/Plan (1) Status post total left knee replacement Code(s): Z96.652 - PRESENCE OF LEFT ARTIFICIAL KNEE JOINT Status: Acute (2) Anemia, normocytic normochromic Code(s): D64.9 - ANEMIA, UNSPECIFIED Status: Chronic (3) Bipolar disorder Code(s): F31.9 - BIPOLAR DISORDER, UNSPECIFIED Status: Chronic (4) Crohns disease Code(s): K50.90 - CROHN'S DISEASE, UNSPECIFIED, WITHOUT COMPLICATIONS Status: Chronic Comment: (5) HTN (hypertension) Code(s): I10 - ESSENTIAL (PRIMARY) HYPERTENSION Status: Chronic Comment: (6) Morbid obesity with BMI of 45.0-49.9, adult Code(s): E66.01 - MORBID (SEVERE) OBESITY DUE TO EXCESS CALORIES; Z68.42 - BODY MASS INDEX (BMI) 45.0-49.9, ADULT Status: Chronic (7) EMILIANO on CPAP Code(s): G47.33 - OBSTRUCTIVE SLEEP APNEA (ADULT) (PEDIATRIC); Z99.89 - DEPENDENCE ON OTHER ENABLING MACHINES AND DEVICES Status: Chronic Comment: Stable, continue CPAP while asleep - Plan cont current plan of care, PT/OT * medication reviewed as below * symptomatic treatment * continue aspirin for DVT prophylaxis * protonix for GI prophylaxis * nerve block as per anesthesia * pain controlled with pain meds * code status -full code * continue PT * discharge as per primary team * resume home meds on discharge. * continue home meds as below. * pt is interested in SNU placement Review of Systems - Review of Systems Eyes: negative: Pain, Vision Change, Conjunctivae Inflammation, Eyelid Inflammation, Redness, Other ENT: negative: Ear Pain, Ear Discharge, Nose Pain, Nose Discharge, Nose Congestion, Mouth Pain, Mouth Swelling, Throat Pain, Throat Swelling, Other Respiratory: negative: Cough, Dry, Shortness of Breath, Hemoptysis, SOB with Excertion, Pleuritic Pain, Sputum, Wheezing Cardiovascular: negative: chest pain, palpitations, orthopnea, paroxysmal nocturnal dyspnea, edema, light headedness, other Gastrointestinal: negative: Nausea, Vomiting, Abdominal Pain, Diarrhea, Constipation, Melena, Hematochezia, Other Genitourinary: negative: Dysuria, Frequency, Incontinence, Hematuria, Retention , Other Musculoskeletal: negative: Neck Pain, Shoulder Pain, Arm Pain, Back Pain, Hand Pain, Leg Pain, Foot Pain, Other Skin: negative: Rash, Lesions, Danilo, Bruising, Other - Medications/Allergies Allergies/Adverse Reactions: Allergies Allergy/AdvReac Type Severity Reaction Status Date / Time adhesive Allergy Verified 02/22/18 08:35 levofloxacin Allergy Verified 02/22/18 08:35 Medications: Current Medications Acetaminophen (Tylenol) 650 mg PO Q4H PRN PRN Reason: BARTH/ T > 101F; Mild Pain (1-3) Aspirin (Ecotrin) 81 mg PO BID [facility] Last Admin: 03/07/18 09:35 Dose: 81 mg Diphenhydramine HCl (Benadryl) 25 mg PO Q6H PRN PRN Reason: Itching Diphenhydramine HCl (Benadryl) 25 mg IM/IV Q3H PRN PRN Reason: Itching Diphenhydramine HCl (Benadryl) 25 mg PO Q3H PRN PRN Reason: Itching Last Admin: 03/07/18 01:01 Dose: 25 mg Ferrous Gluconate (Fergon) 324 mg PO BID [facility] Last Admin: 03/07/18 09:34 Dose: 324 mg Folic Acid (Folvite) 1 mg PO HS [facility] Last Admin: 03/06/18 21:33 Dose: 1 mg Hydrochlorothiazide (Hydrochlorothiazide) 12.5 mg PO DAILY [facility] Last Admin: 03/07/18 09:34 Dose: 12.5 mg Hydroxyzine HCl (Atarax) 50 mg PO TID [facility] Last Admin: 03/07/18 09:35 Dose: 50 mg Sodium Chloride (Normal Saline 0.9%) 1,000 mls @ 100 mls/hr IV .Q10H [facility] Last Admin: 03/07/18 01:59 Dose: 1,000 mls Ropivacaine 250 ml/ Device 250 mls @ 10 mls/hr NERVE BLCK INF [facility] Last Admin: 03/07/18 11:59 Dose: 250 mls Fentanyl Citrate 2,000 mcg/ (Sodium Chloride) 100 mls @ 0 mls/hr IV INF PRN PRN Reason: Pain Last Admin: 03/07/18 07:19 Dose: 100 mls Iron/Minerals/Multivitamins (Theragran M) 1 tab PO DAILY [facility] Last Admin: 03/07/18 09:33 Dose: 1 tab Ketorolac Tromethamine (Toradol) 30 mg IVP Q6H PRN PRN Reason: Moderate Pain (4-6) Stop: 03/09/18 09:20 Last Admin: 03/07/18 11:23 Dose: 30 mg Ketorolac Tromethamine (Toradol) 30 mg IVP Q6H PRN PRN Reason: Moderate Pain 4-6 Stop: 03/09/18 13:17 Last Admin: 03/07/18 04:41 Dose: 30 mg [place] Carbonate ([place] Carbonate) 150 mg PO BID [facility] Last Admin: 03/07/18 09:31 Dose: 150 mg Loperamide HCl (Imodium) 2 mg PO PRN PRN PRN Reason: Diarrhea/Loose Stools Mirtazapine (Remeron) 7.5 mg PO HS [facility] Last Admin: 03/06/18 21:37 Dose: 7.5 mg Naloxone HCl (Narcan) 0.2 mg IV Q5MIN PRN PRN Reason: RR <8 or pt obtun/unarousable Ondansetron HCl (Zofran) 4 mg IVP Q6H PRN PRN Reason: Nausea/Vomiting Ondansetron HCl (Zofran) 4 mg IVP Q6H PRN PRN Reason: Nausea/Vomiting Pantoprazole Sodium (Protonix) 20 mg PO HS [facility] Last Admin: 03/06/18 21:37 Dose: 20 mg Amphetamine Sulfate ([Evekeo] 25 Mg) 0 each PO DAILY [facility] Potassium Chloride (Slow-K 8 Meq) 8 meq PO HS [facility] Last Admin: 03/06/18 21:39 Dose: 8 meq Pregabalin (Lyrica) 75 mg PO BID [facility] Last Admin: 03/07/18 09:40 Dose: 75 mg Promethazine HCl (Phenergan) 12.5 mg IM Q4H PRN PRN Reason: Nausea Promethazine HCl (Phenergan) 12.5 mg IM Q4H PRN PRN Reason: Nausea/Vomiting Senna/Docusate Sodium (Senokot S) 2 tab PO BID [facility] Last Admin: 03/07/18 09:33 Dose: 2 tab Sodium Chloride (Flush - Normal Saline) 10 ml IVF PRN PRN PRN Reason: Saline Flush Tizanidine HCl (Zanaflex) 4 mg PO [facility] Last Admin: 03/06/18 21:38 Dose: 4 mg Zolpidem Tartrate (Ambien) 5 mg PO HSPRN PRN PRN Reason: Insomnia
[2018-03-07] MEDS ORDERED: AMPHETAMINE SULFATE PO SCH (14:45)
[2018-03-07] MEDS: Potassium Chloride 8 MEQ TAB PO SCH (20:27)
[2018-03-07] MEDS: Folic Acid 1 MG TAB PO SCH (20:28)
[2018-03-07] MEDS: Mirtazapine 15 MG TAB PO SCH (20:29)
[2018-03-07] MEDS: tiZANidine HCl 4 MG TAB PO SCH (20:30)
[2018-03-08] MEDS: Sodium Chloride 0.9% 1,000 ML IV SCH ×3 (00:20→23:27)
[2018-03-08] MEDS: Ketorolac Tromethamine 30 MG/ML VIAL IVP PRN ×2 (00:32→15:29)
[2018-03-08 05:30] LABS: Hemoglobin 9.3 g/dL (12.0-16.0); Mean Corpuscular HGB CONC 33.4 g/dL (32.0-36.0); Mean Corpuscular Hemoglobin 32.6 pg (27.0-31.0); Mean Corpuscular Volume 97.8 fL (78.0-98.0); Mean Platelet Volume 7.8 fL (7.4-10.4); Platelet Count 136 thou/uL (130-400); RBC Distribution Width 14.3 % (11.5-14.5); Red Blood Cell (RBC) Count 2.86 mill/uL (4.20-5.40); White Blood Cell (WBC) Count 5.8 thou/uL (4.8-10.8)
[2018-03-08] MEDS ORDERED: HYDROcodone/Acetaminophen 10/325 mg Tablet PO PRN (09:16)
[2018-03-08] MEDS ORDERED: traMADol HCl 50 MG TAB PO PRN (09:17)
[2018-03-08] MEDS: Ferrous Gluconate 324 MG TAB PO SCH ×2 (09:32→21:54)
[2018-03-08] MEDS: Senokot S 8.6-50 MG TAB PO SCH ×2 (09:32→21:53)
[2018-03-08] MEDS: Multivitamin W/ Minerals 1 TAB PO SCH (09:32)
[2018-03-08] MEDS: hydrOXYzine 25 MG TAB PO SCH ×3 (09:32→21:54)
[2018-03-08] MEDS: Hydrochlorothiazide 25 MG TAB PO SCH (09:32)
[2018-03-08] MEDS: Pregabalin 75 MG CAP PO SCH ×2 (09:33→21:53)
[2018-03-08] MEDS: Lithium Carbonate 150 MG CAP PO SCH ×2 (09:33→21:53)
[2018-03-08] MEDS: Aspirin 81 mg Enteric Coated Tablet PO SCH ×2 (09:33→21:53)
[2018-03-08] MEDS: HYDROcodone/Acetaminophen 10/325 mg Tablet PO PRN ×2 (09:36→13:18)
--- NOTE | 2018-03-08 09:55 | DIS ---
PRIMARY CARE PHYSICIAN: Dr. Wang Lunsford DATE OF ADMISSION: 03/06/2018 DATE OF DISCHARGE: 03/08/2018 DISCHARGE DISPOSITION: Home. PRIMARY DISCHARGE DIAGNOSIS: Status post left total knee replacement. RADIOLOGIC INVESTIGATION: Knee x-ray, chest x-ray. SIGNIFICANT LABORATORY DATA: WBC 5.8, hemoglobin 9.3, platelet 136. DISCHARGE MEDICATIONS: The patient will be given aspirin 81 mg p.o. b.i.d. for deep venous thrombosi s prophylaxis. Patient will have pain medication as per primary team. The patient will continue fol lowing medications as per previous; ____ 25 mg p.o. daily, folic acid 0.8 mg p.o. at bedtime, hydroch lorothiazide 12.5 mg p.o. daily, hydrocodone ER 20 mg p.o. at bedtime, Atarax 50 mg t.i.d., lithium c arbonate 150 mg p.o. b.i.d., Imodium 2 mg as directed, Remeron 7.5 mg p.o. at bedtime, Protonix 20 mg p.o. at bedtime., potassium gluconate 595 mg p.o. at bedtime, Lyrica 75 mg p.o. b.i.d., sulfasalazin e 500 mg p.o. b.i.d., Zanaflex 4 mg p.o. at bedtime, trazodone 150 mg p.o. at bedtime. PRIMARY DISCHARGE DIAGNOSIS: Status post left total knee replacement. SECONDARY DISCHARGE DIAGNOSES: Normocytic normochromic, bipolar disorder, Crohn's disease, hypertens ion, morbid obesity with BMI of 47, obstructive sleep apnea on CPAP. PRIMARY PROCEDURE/OPERATION: Left total knee replacement. RADIOLOGICAL INVESTIGATION: Knee x-ray, chest x-ray. SIGNIFICANT LABORATORY DATA: WBC 5.8, hemoglobin 9.3, platelet 136. CONTRAINDICATIONS: None. CODE STATUS: FULL CODE. INPATIENT CONSULTANTS: Dr. Bolaños was primary. Sound Team was consulted for medical comanagement. TEST RESULTS PENDING ON DISCHARGE: None. ALLERGIES: LEVOFLOXACIN. DISCHARGE PLAN: Post hospital, the patient will follow up with primary care physician in 1 week and patient has appointment with Dr. Bolaños on 03/28/2018 at 8:45 a.m. HOSPITAL COURSE: A 53-year-old female with above-mentioned medical problem who was electively admitt ed by Dr. Bolaños for left total knee replacement. The patient had surgery on 03/06/2018 without any complication. Postoperatively, at [facility] Team was consulted for medical comanagemen t. All medical problems remained stable. During this admission, the patient was given aspirin for D VT prophylaxis. She was given nerve block for pain control. She also required CALL PERSON for pain control. We continued all her previous home medication. Upon discharge she will continue all her previous m edications. She will have aspirin for DVT prophylaxis. Pain medication will be prescribed by primar y team. Today the patient is planned for discharge later on today to home. Her nerve block will be discontinued as well as CALL PERSON as well and her pain will be controlled with pain medication. Initially, plan was to send her to [facility] home, but the patient changed her mind today to go home. The patient is seen and examined at bedside today. Review of systems reviewed with her and negative. PHYSICAL EXAMINATION: VITAL SIGNS: Currently, temperature 98.8, pulse 93, respiratory rate 19, saturation 95% on room air, blood pressure 116/78, weight 270 pounds. GENERAL: The patient is currently alert, awake, no obvious acute distress. HEAD: Normocephalic, atraumatic. EYES: Pupils round, reactive to light. Extraocular muscle intact. ENT: Oropharynx within normal limits. Moist mucous membranes. No oral lesions. NECK: Supple, no JVD, no thyromegaly, no carotid bruit. LUNGS: Clear to auscultation without any rhonchi. CARDIAC: S1, S2 regular without any murmur. ABDOMEN: Soft and benign. Obesity present. EXTREMITIES: No edema. Surgical site is clean and healthy. NEUROLOGIC: Nonfocal examination. Overall the patient is medically stable for discharge later on today if primary team okay and from to day we will sign off.
--- NOTE | 2018-03-08 10:13 | PDOC.PN ---
- Subjective Encounter Start Date: 03/08/18 Encounter Start Time: 08:20 Patient seen and examined. No new complaints. No overnight events - Objective Resuscitation Status: Resuscitation Status FULL:Full Resuscitation MAR Reviewed: Yes Vital Signs & Weight: Vital Signs (12 hours) Temp Pulse Resp BP Pulse Ox 03/08/18 05:20 98.8 F 93 19 116/78 95 03/08/18 01:14 99.9 F H 93 22 H 116/73 97 Weight Admit Weight 270 lb Weight 270 lb I&O: 03/07/18 03/08/18 03/09/18 06:59 06:59 06:59 Intake Total 1650 2560 Output Total 1900 Balance -250 2560 Result Diagrams: 03/08/18 04:25 Phys Exam - Physical Examination Constitutional: NAD HEENT: PERRLA, moist MMs, sclera anicteric Neck: no JVD, supple Respiratory: no wheezing, no rales, no rhonchi Cardiovascular: RRR, no significant murmur, no rub Gastrointestinal: soft, non-tender, no distention, positive bowel sounds Musculoskeletal: no edema, pulses present left knee surgical site is clean Neurological: non-focal, normal sensation, moves all 4 limbs Psychiatric: normal affect, A&O x 3 Skin: no rash, normal turgor Dx/Plan (1) Status post total left knee replacement Code(s): Z96.652 - PRESENCE OF LEFT ARTIFICIAL KNEE JOINT Status: Acute (2) Anemia, normocytic normochromic Code(s): D64.9 - ANEMIA, UNSPECIFIED Status: Chronic (3) Bipolar disorder Code(s): F31.9 - BIPOLAR DISORDER, UNSPECIFIED Status: Chronic (4) Crohns disease Code(s): K50.90 - CROHN'S DISEASE, UNSPECIFIED, WITHOUT COMPLICATIONS Status: Chronic Comment: (5) HTN (hypertension) Code(s): I10 - ESSENTIAL (PRIMARY) HYPERTENSION Status: Chronic Comment: (6) Morbid obesity with BMI of 45.0-49.9, adult Code(s): E66.01 - MORBID (SEVERE) OBESITY DUE TO EXCESS CALORIES; Z68.42 - BODY MASS INDEX (BMI) 45.0-49.9, ADULT Status: Chronic (7) EMILIANO on CPAP Code(s): G47.33 - OBSTRUCTIVE SLEEP APNEA (ADULT) (PEDIATRIC); Z99.89 - DEPENDENCE ON OTHER ENABLING MACHINES AND DEVICES Status: Chronic Comment: Stable, continue CPAP while asleep - Plan cont current plan of care, PT/OT * medication reviewed as below * symptomatic treatment * see my discharge silvina. Review of Systems - Review of Systems Eyes: negative: Pain, Vision Change, Conjunctivae Inflammation, Eyelid Inflammation, Redness, Other ENT: negative: Ear Pain, Ear Discharge, Nose Pain, Nose Discharge, Nose Congestion, Mouth Pain, Mouth Swelling, Throat Pain, Throat Swelling, Other Respiratory: negative: Cough, Dry, Shortness of Breath, Hemoptysis, SOB with Excertion, Pleuritic Pain, Sputum, Wheezing Cardiovascular: negative: chest pain, palpitations, orthopnea, paroxysmal nocturnal dyspnea, edema, light headedness, other Gastrointestinal: negative: Nausea, Vomiting, Abdominal Pain, Diarrhea, Constipation, Melena, Hematochezia, Other Genitourinary: negative: Dysuria, Frequency, Incontinence, Hematuria, Retention , Other Musculoskeletal: negative: Neck Pain, Shoulder Pain, Arm Pain, Back Pain, Hand Pain, Leg Pain, Foot Pain, Other - Medications/Allergies Allergies/Adverse Reactions: Allergies Allergy/AdvReac Type Severity Reaction Status Date / Time adhesive Allergy Verified 02/22/18 08:35 levofloxacin Allergy Verified 02/22/18 08:35 Medications: Current Medications Acetaminophen (Tylenol) 650 mg PO Q4H PRN PRN Reason: BARTH/ T > 101F; Mild Pain (1-3) Hydrocodone Bitart/Acetaminophen ([place] 10/325) 1 tab PO Q4H PRN PRN Reason: Moderate Pain (4-6) Hydrocodone Bitart/Acetaminophen ([place] 10/325) 2 tab PO Q4H PRN PRN Reason: Moderate Pain (4-6)[facility] Last Admin: 03/08/18 09:36 Dose: 2 tab Aspirin (Ecotrin) 81 mg PO BID [facility] Last Admin: 03/08/18 09:33 Dose: 81 mg Diphenhydramine HCl (Benadryl) 25 mg IM/IV Q3H PRN PRN Reason: Itching Diphenhydramine HCl (Benadryl) 25 mg PO Q3H PRN PRN Reason: Itching Last Admin: 03/07/18 01:01 Dose: 25 mg Ferrous Gluconate (Fergon) 324 mg PO BID [facility] Last Admin: 03/08/18 09:32 Dose: 324 mg Folic Acid (Folvite) 1 mg PO HS [facility] Last Admin: 03/07/18 20:28 Dose: 1 mg Hydrochlorothiazide (Hydrochlorothiazide) 12.5 mg PO DAILY [facility] Last Admin: 03/08/18 09:32 Dose: 12.5 mg Hydroxyzine HCl (Atarax) 50 mg PO TID [facility] Last Admin: 03/08/18 09:32 Dose: 50 mg Sodium Chloride (Normal Saline 0.9%) 1,000 mls @ 100 mls/hr IV .Q10H [facility] Last Admin: 03/08/18 00:20 Dose: 1,000 mls Ropivacaine 250 ml/ Device 250 mls @ 10 mls/hr NERVE BLCK INF [facility] Last Admin: 03/07/18 11:59 Dose: 250 mls Fentanyl Citrate 2,000 mcg/ (Sodium Chloride) 100 mls @ 0 mls/hr IV INF PRN PRN Reason: Pain Last Admin: 03/07/18 18:09 Dose: 100 mls Iron/Minerals/Multivitamins (Theragran M) 1 tab PO DAILY [facility] Last Admin: 03/08/18 09:32 Dose: 1 tab Ketorolac Tromethamine (Toradol) 30 mg IVP Q6H PRN PRN Reason: Moderate Pain 4-6 Stop: 03/09/18 13:17 Last Admin: 03/07/18 04:41 Dose: 30 mg [place] Carbonate ([place] Carbonate) 150 mg PO BID [facility] Last Admin: 03/08/18 09:33 Dose: 150 mg Loperamide HCl (Imodium) 2 mg PO PRN PRN PRN Reason: Diarrhea/Loose Stools Mirtazapine (Remeron) 7.5 mg PO [facility] Last Admin: 03/07/18 20:29 Dose: 7.5 mg Naloxone HCl (Narcan) 0.2 mg IV Q5MIN PRN PRN Reason: RR <8 or pt obtun/unarousable Ondansetron HCl (Zofran) 4 mg IVP Q6H PRN PRN Reason: Nausea/Vomiting Pantoprazole Sodium (Protonix) 20 mg PO [facility] Last Admin: 03/07/18 20:27 Dose: 20 mg Amphetamine Sulfate ([Evekeo] 25 Mg) 0 each PO DAILY [facility] Potassium Chloride (Slow-K 8 Meq) 8 meq PO HS [facility] Last Admin: 03/07/18 20:27 Dose: 8 meq Pregabalin (Lyrica) 75 mg PO BID [facility] Last Admin: 03/08/18 09:33 Dose: 75 mg Promethazine HCl (Phenergan) 12.5 mg IM Q4H PRN PRN Reason: Nausea/Vomiting Senna/Docusate Sodium (Senokot S) 2 tab PO BID [facility] Last Admin: 03/08/18 09:32 Dose: 2 tab Sodium Chloride (Flush - Normal Saline) 10 ml IVF PRN PRN PRN Reason: Saline Flush Tizanidine HCl (Zanaflex) 4 mg PO HS [facility] Last Admin: 03/07/18 20:30 Dose: 4 mg Tramadol HCl (Ultram) 50 mg PO Q4H PRN PRN Reason: Mild-Moderate Pain (1-5) Tramadol HCl (Ultram) 100 mg PO Q4H PRN PRN Reason: Mild-Mod Pain (1-5) 2ND LINE Zolpidem Tartrate (Ambien) 5 mg PO HSPRN PRN PRN Reason: Insomnia
[2018-03-08] MEDS: traMADol HCl 50 MG TAB PO PRN ×3 (10:25→18:38)
[2018-03-08] MEDS: AMPHETAMINE SULFATE PO SCH (11:35)
[2018-03-08] MEDS: Potassium Chloride 8 MEQ TAB PO SCH (21:53)
[2018-03-08] MEDS: Folic Acid 1 MG TAB PO SCH (21:54)
[2018-03-08] MEDS: Mirtazapine 15 MG TAB PO SCH (21:54)
[2018-03-08] MEDS: tiZANidine HCl 4 MG TAB PO SCH (21:55)
[2018-03-09] MEDS: Ketorolac Tromethamine 30 MG/ML VIAL IVP PRN (01:53)
[2018-03-09 04:05] LABS: Hemoglobin 8.7 g/dL (12.0-16.0); Mean Corpuscular HGB CONC 34.4 g/dL (32.0-36.0); Mean Corpuscular Hemoglobin 33.3 pg (27.0-31.0); Mean Corpuscular Volume 96.9 fL (78.0-98.0); Mean Platelet Volume 7.5 fL (7.4-10.4); Platelet Count 133 thou/uL (130-400); RBC Distribution Width 14.6 % (11.5-14.5); Red Blood Cell (RBC) Count 2.62 mill/uL (4.20-5.40); White Blood Cell (WBC) Count 5.1 thou/uL (4.8-10.8)
[2018-03-09] MEDS: Sodium Chloride 0.9% 1,000 ML IV SCH (06:48)
[2018-03-09 08:22] VITALS: TEMP 99
[2018-03-09] MEDS: hydrOXYzine 25 MG TAB PO SCH (09:19)
[2018-03-09] MEDS: Senokot S 8.6-50 MG TAB PO SCH (09:19)
[2018-03-09] MEDS: Lithium Carbonate 150 MG CAP PO SCH (09:19)
[2018-03-09] MEDS: Pregabalin 75 MG CAP PO SCH (09:20)
[2018-03-09] MEDS: Multivitamin W/ Minerals 1 TAB PO SCH (09:20)
[2018-03-09] MEDS: Ferrous Gluconate 324 MG TAB PO SCH (09:20)
[2018-03-09] MEDS: Aspirin 81 mg Enteric Coated Tablet PO SCH (09:20)
[2018-03-09] MEDS: Hydrochlorothiazide 25 MG TAB PO SCH (09:20)
[2018-03-09] MEDS: HYDROcodone/Acetaminophen 10/325 mg Tablet PO PRN (09:21)
[2018-03-09] MEDS: AMPHETAMINE SULFATE PO SCH (10:47)
[2018-03-09 12:05] VITALS: BP 119/68
[2018-03-09] MEDS: traMADol HCl 50 MG TAB PO PRN (12:10)
== END 2018-03-09 16:59 | disposition home or self-care (01) | DRG 470 ==
LOC: SURG A 03-06 06:08 → SJJU 03-06 14:19
PROVIDERS: ADMIT Orthopaedic Surgery; ATTEND Orthopaedic Surgery
PROC: 0SRD0J9 Replacement of Left Knee Joint with Synthetic Substitute, Cemented, Open Approach (ICD-10-PCS; principal; 2018-03-06)
DX: M17.11 Unilateral primary osteoarthritis, right knee (principal); K50.90 Crohn's disease, unspecified, without complications; Z68.41 Body mass index [BMI] 40.0-44.9, adult; M17.12 Unilateral primary osteoarthritis, left knee; F31.9 Bipolar disorder, unspecified; I10 Essential (primary) hypertension; E66.01 Morbid (severe) obesity due to excess calories; G47.33 Obstructive sleep apnea (adult) (pediatric); Z88.8 Allergy status to other drugs, medicaments and biological substances; D64.9 Anemia, unspecified; G89.29 Other chronic pain; F90.9 Attention-deficit hyperactivity disorder, unspecified type
CPT/HCPCS: 36415; 71046; 85027; 90471; 90732; C1713; C1776; G0009; G8978-GP-CL; G8979-GP-CJ; G8987-GO-CI; G8988-GO-CI; G8989-GO-CI; J1170; J1885; J2001; J2250; J2405; J2704; J2795; J3010; J3370; J7050; S0028

== ENCOUNTER 2018-02-22 08:27 | Outpatient (CLI) | payer BC ==
--- NOTE | 2018-02-22 09:49 | RAD ---
CHEST TWO VIEWS: INDICATIONS: Preoperative evaluation. COMPARISON: 01/29/2010 FINDINGS: There is no consolidation, effusion, or pneumothorax. The prior patchy left perihilar density has re solved since the prior exam. The cardiac silhouette is at the upper limits of normal in size. There is mild degenerative change of the osseous structures. IMPRESSION: No focal consolidation. POS: [facility]
[2018-02-22 11:41] LABS: Bilirubin Negative (Negative); Blood, Urine Negative (Negative); Clarity CLEAR (Clear); Glucose, Urine (Dipstick) Negative (Negative); Leukocyte Negative (Negative); Nitrite Negative (Negative); Protein, Urine (Dipstick) Negative (Neg-Trace); Urobilinogen 0.2 mg/dL (0.2-1.0)
[2018-02-22 11:51] LABS: Bacteria/HPF None Seen HPF (None Seen); Hyaline Casts/LPF 0-3 HYALINE CAST LPF (0-3 Hyaline); RBC/HPF 0-3 HPF (0-3); Squamous Epithelial 0-3 HPF (0-3); WBC/HPF 0-3 HPF (0-3)
== END 2018-02-22 08:28 | disposition home or self-care (01) ==
LOC: LABBT 08:27
PROVIDERS: ATTEND Orthopaedic Surgery
DX: Z01.818 Encounter for other preprocedural examination (principal); M17.12 Unilateral primary osteoarthritis, left knee
CPT/HCPCS: 71046; 81001; 87081; 93005; 93010

== ENCOUNTER 2018-02-27 13:44 | Outpatient (CLI) | payer BC ==
[2018-02-27 14:23] LABS: Hemoglobin 12.8 g/dL (12.0-16.0); Mean Corpuscular HGB CONC 33.9 g/dL (32.0-36.0); Mean Corpuscular Hemoglobin 32.2 pg (27.0-31.0); Mean Platelet Volume 7.3 fL (7.4-10.4); Platelet Count 178 thou/uL (130-400); RBC Distribution Width 13.7 % (11.5-14.5); Red Blood Cell (RBC) Count 3.96 mill/uL (4.20-5.40); White Blood Cell (WBC) Count 4.2 thou/uL (4.8-10.8)
[2018-02-27 14:29] LABS: INR-International Normal Ratio 1.1; PTT 25.8 SEC (22.9-36.1); Prothrombin Time 13.8 SEC (12.0-14.7)
[2018-02-27 14:41] LABS: Anion Gap 11 mmol/L (10-20); BUN (Urea Nitrogen) 13 mg/dL (9.8-20.1); Calc. Creatinine Clearance 0 mL/min (70-130); Calcium 9.2 mg/dL (7.8-10.44); Carbon Dioxide 26 mmol/L (22-29); Chloride 105 mmol/L (98-107); Estimated GFR-MDRD 63; Glucose 175 mg/dL (70-105); Potassium 3.4 mmol/L (3.5-5.1); Sodium 139 mmol/L (136-145)
== END 2018-02-27 13:45 | disposition home or self-care (01) ==
LOC: LABBT 13:44
PROVIDERS: ATTEND Orthopaedic Surgery
DX: Z01.818 Encounter for other preprocedural examination (principal); M17.12 Unilateral primary osteoarthritis, left knee
CPT/HCPCS: 80048; 85027; 85610; 85730; 86850; 86900; 86901

== ENCOUNTER 2018-09-03 18:32 | Emergency (ER) | payer BC ==
[2018-09-03] MEDS ORDERED: Lorazepam 2 MG/ML VIAL ONE (18:56)
[2018-09-03] MEDS ORDERED: Lorazepam 1 MG TAB ONE (18:57)
[2018-09-03 19:27] LABS: #Basophils 0.1 thou/uL (0.0-0.2); #Monocytes 0.6 thou/uL (0.11-0.59); #Neutrophils 4.9 thou/uL (1.40-6.50); %Basophils 1.1 % (0.0-1.0); %Eosinophils 0.2 % (0.0-10.0); %Lymphocytes 26.4 % (21.0-51.0); %Monocytes 7.6 % (0.0-10.0); %Neutrophils 64.7 % (42.0-75.0); Hemoglobin 13.7 g/dL (12.0-16.0); Mean Corpuscular HGB CONC 33.3 g/dL (32.0-36.0); Mean Corpuscular Hemoglobin 30.4 pg (27.0-31.0); Mean Corpuscular Volume 91.4 fL (78.0-98.0); Platelet Count 207 thou/uL (130-400); RBC Distribution Width 14.9 % (11.5-14.5); Red Blood Cell (RBC) Count 4.49 mill/uL (4.20-5.40); White Blood Cell (WBC) Count 7.6 thou/uL (4.8-10.8)
[2018-09-03 19:41] LABS: ALT (SGPT) 98 U/L (8-55); AST (SGOT) 101 U/L (5-34); Albumin 4.2 g/dL (3.5-5.0); Alkaline Phosphatase 128 U/L (40-150); Anion Gap 18 mmol/L (10-20); BUN (Urea Nitrogen) 9 mg/dL (9.8-20.1); Bilirubin, Total 0.8 mg/dL (0.2-1.2); Calc. Creatinine Clearance 0 mL/min (70-130); Calcium 9.9 mg/dL (7.8-10.44); Carbon Dioxide 22 mmol/L (22-29); Chloride 104 mmol/L (98-107); Estimated GFR-MDRD 75; Globulin 3.5 g/dL (2.4-3.5); Glucose 131 mg/dL (70-105); Magnesium 1.9 mg/dL (1.6-2.6); Potassium 3.8 mmol/L (3.5-5.1); Protein, Total 7.7 g/dL (6.0-8.3); Sodium 140 mmol/L (136-145)
== END 2018-09-03 21:10 | disposition home or self-care (01) ==
LOC: SCSER 18:32
DX: F10.239 Alcohol dependence with withdrawal, unspecified (principal); I10 Essential (primary) hypertension; F90.9 Attention-deficit hyperactivity disorder, unspecified type; F32.9 Major depressive disorder, single episode, unspecified
CPT/HCPCS: 80053; 83735; 85025; 93005; 96360; 96361; J2060

== ENCOUNTER 2018-12-14 10:43 | Outpatient (CLI) | payer BC ==
--- NOTE | 2018-12-14 13:32 | RAD ---
CERVICAL SPINE: 12/14/18 Seven views. Lateral views were obtained with neutral flexion and extension positions. INDICATIONS: Neck pain, cervical spondylosis. Cervical vertebrae maintain height. There are degenerative osteophytes seen from the anterior cervica l vertebra most pronounced at the C3, C4 and C5 levels. There is a slight posterior listhesis of C5 o n C6 measuring at approximately 3 mm with posterior spondylosis at this level. This does not appear t o significantly change with flexion and extension. There is mild loss of disc space at the C5-6 level. IMPRESSION: Degenerative changes of the cervical spine with anterior osteophytes as described above. Degenerative changes are most pronounced at C5-6 where there is loss of disc space, slight posterior listhesis an d posterior spondylosis. POS: GINO
--- NOTE | 2018-12-14 13:34 | RAD ---
LUMBAR SPINE: FOUR VIEWS 12/14/18 HISTORY: Spondylosis of lumbar spine. Low back pain. COMPARISON: Lumbar films 10/20/17. Postoperative changes are again noted with pedicle screws at L4-5 and interbody implant at L4-5. Slig ht anterolisthesis at L4-5 is unchanged from prior exam. There is a slight posterolisthesis at L3-4 w hich has slightly progressed when compared to the prior study. Mild spurring from the lumbar vertebra . Facet hypertrophy is again noted. Posterior laminectomy changes at L4 and L5. IMPRESSION: Postoperative and degenerative changes lumbar spine noted as described above. POS: MAISHA
--- NOTE | 2018-12-14 14:12 | MRI ---
EXAM: MRI WITH AND WITHOUT CONTRAST: 12/14/18 HISTORY: Three previous back surgeries. Chronic low back pain radiating down both lower extremities. Associate d numbness. COMPARISON: None. FINDINGS: Appropriate T1 marrow signal intensity of the lumbar vertebrae. Lumbar spine vertebral body height is maintained. No fracture. No significant STIR hyperintensity to suggest vertebral body edema or ligam entous injury. There are bilateral transpedicular screws with associated metallic susceptibility artifact at L4 and L5. 2.4 mm of retrolisthesis of L3 upon L4 and 2.8 mm anterolisthesis of L4 upon L5. Appropriate signal intensity of the paraspinal muscles. There is a T2 hyperintense focus that is mu g the posterior right perinephric space measuring 0.6 x 1.0 cm. Postcontrast fat saturated images do raise the possibility of enhancement. Etiology and significance of this lesion is uncertain. Evaluati on is incomplete. Conus medullaris terminates at the T12-L1 disc space level. Laminectomy defect at L4 and L5. At the operative site, there is a T2 hyperintense lesion measuring 1 .5 cm craniocaudal x 0.8 cm anterior posterior x 2.6 cm mediolateral. There is rim enhancement. No si gnificant mass effect. Postcontrast images do not demonstrate abnormal enhancement with regards to the vertebral bodies. No intramedullary enhancement. No abnormal enhancement within the thecal sac including the cauda equine and conus medullaris. T12-L1: No significant central canal stenosis or neural foraminal narrowing. L1-L2: Adequate disc hydration. No significant central canal stenosis or neural foraminal narrowing. L2-L3: No significant loss of disc space height. No significant central canal stenosis. Neural didier javan are patent. L3-L4: Minimal desiccation without significant loss of disc space height. No significant central orville l stenosis. Neural foramina are patent. L4-L5: There is mild loss of disc space height. There is a disc prosthesis. Posterior laminectomy def ect is identified. Aforementioned peripheral enhancing fluid signal intensity lesion is noted. No sig nificant stenosis of the thecal sac. Mild to moderate right and mild left foraminal narrowing. L5-S1: Laminectomy defect is identified. No significant central canal stenosis. Neural foramina are patent. No significant loss of disc space height. IMPRESSION: 1. Lumbar fusion at L4-L5. 2. No significant central canal stenosis or foraminal narrowing. 3. Peripherally enhancing fluid signal intensity as described above. Differential considerations include a postoperative fluid collection versus an infected fluid collection. Clinical correlation is essential. There is no associated mass effect secondary to the fluid collection along the laminec carlos defect at L4-L5. Code T POS: OFF
== END 2018-12-14 10:44 | disposition home or self-care (01) ==
LOC: SCSMRI 10:43
PROVIDERS: ATTEND Neurological Surgery
DX: M47.816 Spondylosis without myelopathy or radiculopathy, lumbar region (principal); M48.062 Spinal stenosis, lumbar region with neurogenic claudication; M43.12 Spondylolisthesis, cervical region; M47.812 Spondylosis without myelopathy or radiculopathy, cervical region; Z98.1 Arthrodesis status
CPT/HCPCS: 36415; 72050; 72110; 72158; 80053; 80061; 80306; 82306; 82607; 82746; 85025

== ENCOUNTER 2018-12-25 07:47 | Day surgery (SDC) | payer BC ==
[2018-12-24 11:00] VITALS: BMI 46.0
--- NOTE | 2018-12-25 13:28 | OP ---
DATE OF PROCEDURE: 12/25/2018 PROCEDURE PERFORMED: Esophagogastroduodenoscopy with biopsy and colonoscopy with biopsy. PREOPERATIVE DIAGNOSIS: Gastroesophageal reflux disease and chronic diarrhea. DESCRIPTION OF PROCEDURE: Informed consent was obtained from the patient. She was sedated with total intravenous anesthesia. The bite block was placed and the endoscope was advanced easily to the proximal jejunum. The esophagus had a single 1 cm segment of possible Celis esophagus, this was biopsied. GE junction was otherwise normal. Esophagus was otherwise normal. There was a very small stomach pouch. The anastomosis to the small intestine was wide open. Small bowel mucosa was normal throughout. Random biopsies were taken from the proximal jejunum to rule out celiac disease. The patient was turned around. Rectal exam was performed and was normal. The preparation quality was good. The colonoscope was advanced to the terminal ileum with some difficulty due to looping in the left colon. The mucosa of the terminal ileum was normal. The ileocecal valve and appendiceal orifice were clearly identified. Random biopsies were taken from the right and left colon to rule out microscopic colitis. The colonic mucosa was normal throughout. Retroflex views in the rectum were normal. IMPRESSION: 1. Post Flavia-en-Y gastric bypass anatomy. 2. 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 3. Otherwise normal upper endoscopy. 4. Normal colonoscopy to the terminal ileum. Random biopsies taken from the right and left colon to rule out microscopic colitis. RECOMMENDATIONS: 1. Await histopathology. 2. Repeat colon cancer screening in 10 years. 3. Follow up in GI clinic for further evaluation of the diarrhea. Job ID: [id number]
== END 2018-12-25 11:24 | disposition home or self-care (01) ==
LOC: SDC 07:47
PROVIDERS: ATTEND Internal Medicine Gastroenterology
PROC: 0DB58ZX Excision of Esophagus, Via Natural or Artificial Opening Endoscopic, Diagnostic (ICD-10-PCS; principal; 2018-12-25)
PROC: 0DBE8ZX Excision of Large Intestine, Via Natural or Artificial Opening Endoscopic, Diagnostic (ICD-10-PCS; principal; 2018-12-25)
PROC: 0DB88ZX Excision of Small Intestine, Via Natural or Artificial Opening Endoscopic, Diagnostic (ICD-10-PCS; principal; 2018-12-25)
DX: K52.9 Noninfective gastroenteritis and colitis, unspecified (principal); K21.0 Gastro-esophageal reflux disease with esophagitis; Z79.899 Other long term (current) drug therapy; Z88.1 Allergy status to other antibiotic agents; Z87.891 Personal history of nicotine dependence
CPT/HCPCS: 88305; 88312; 88313

== ENCOUNTER 2019-01-09 10:55 | Outpatient (CLI) | payer BC ==
--- NOTE | 2019-01-09 12:13 | CT ---
CT Abdomen Pelvis W Con HISTORY: MRI of lumbar spine which demonstrated a mass in right perinephric space. COMPARISON: MRI study of 12/14/[address] examination of 05/08/2015. FINDINGS: The lung bases are clear of infiltrates. There are diffuse fatty changes of the liver which measures 17.8 cm in length. The spleen and pancrea s regions are unremarkable. The gallbladder has been removed. Right and left adrenal glands and right and left kidneys are normal in size. Directly posterior to th e right lobe of the liver and posterior lateral to the upper pole of the right kidney is the small low-attenuation focus noted on MRI study. It was not present on the previous 2014 CT study. It has CT Hounsfield unit numbers that would suggest it is cystic in nature and does not show any enhancement it is felt to be a benign fluid collection in the retroperitoneum. There is no significan t periaortic or mesenteric adenopathy. CT of pelvis performed with intravenous contrast enhancement: No evidence of adenopathy, mass or free fluid. IMPRESSION: 1. Diffuse fatty change of the liver. 2. Postop cholecystectomy change and gastric bypass. 3. Tiny 1 cm fluid density collection corresponding to the MRI abnormality directly posterior to the right lobe of the liver and posterior lateral to the upper pole the right kidney this has an overall benign appearance.
== END 2019-01-09 10:56 | disposition home or self-care (01) ==
LOC: SCSCT 10:55
PROVIDERS: ATTEND Neurological Surgery
DX: R19.00 Intra-abdominal and pelvic swelling, mass and lump, unspecified site (principal); K76.0 Fatty (change of) liver, not elsewhere classified; Z90.49 Acquired absence of other specified parts of digestive tract
CPT/HCPCS: 74177

== ENCOUNTER 2019-04-24 16:08 | Outpatient (CLI) | payer BC ==
--- NOTE | 2019-04-24 16:54 | RAD ---
CERVICAL SPINE SERIES: 04/24/19 HISTORY: Neck pain. COMPARISON: A 12/14/18 study. Vertebral bodies are normal in height. Moderate disc narrowing is seen at the C5-6 level again with m inimal retrolisthesis similar to the 12/14/18 study. IMPRESSION: Arthritic changes at C5-6 with stable appearance as compared to the prior exam. No abnormal motion se en in flexion or extension. POS: TPC
== END 2019-04-24 16:09 | disposition home or self-care (01) ==
LOC: TBSIIMAG 16:08
PROVIDERS: ATTEND Neurological Surgery
DX: M47.22 Other spondylosis with radiculopathy, cervical region (principal)
CPT/HCPCS: 72050

== ENCOUNTER 2019-04-30 11:00 | Day surgery (SDC) | payer BC ==
[2019-04-29 14:15] VITALS: BMI 43.4
[2019-04-30] MEDS ORDERED: Bupivacaine HCl 0.5%/Epinephrine 1:200,000/PF 30 ml Vial ONE (13:20)
[2019-04-30] MEDS ORDERED: Midazolam HCl 2 mg/2 ml Vial ONE ×2 (13:29→15:33)
[2019-04-30] MEDS ORDERED: Fentanyl 100 MCG/2 ML VIAL ONE ×2 (13:29→15:33)
[2019-04-30] MEDS ORDERED: Propofol 1,000 MG/100 ML VIAL IV ONE (15:33)
--- NOTE | 2019-04-30 20:53 | OP ---
DATE OF PROCEDURE: 04/30/2019 PREOPERATIVE DIAGNOSES: 1. Chronic pain syndrome. 2. Postlaminectomy syndrome. 3. Lumbar radiculopathy. POSTOPERATIVE DIAGNOSES: 1. Chronic pain syndrome. 2. Postlaminectomy syndrome. 3. Lumbar radiculopathy. PROCEDURES PERFORMED: 1. SCS generator implant. 2. SCS lead implant x2. ESTIMATED BLOOD LOSS: Minimal. DESCRIPTION OF PROCEDURE: The patient was taken to the procedure room, placed prone on the procedure room table. A time-out was performed. Using DuraPrep, the back was prepped and sterile drapes were applied. We used fluoroscopy to locate the interspace of L1-L2. We anesthetized the skin with 0.5% Marcaine with epinephrine and then used a 10 blade scalpel to make a vertical incision. We blunt dissected this down to the fascia. We inserted the supplied 14-gauge Touhy needle in a paramedian technique into this interspace. We achieved access to the epidural space using loss of resistance to air. We threaded an 8-contact lead up the midline dorsal epidural space up to the top of T7. We did the exact same procedure to place a contralateral lead on the other side. Stimulation was performed intraoperatively with the patient awake and she noted paresthesia in all pain areas. We then took the needle and stylet out taking care not to move the electrodes. Anchors were slipped over the electrodes and clicked down to fix them to the lead. These were sutured with 2-0 silk suture x2 each to fascia. We then created a pocket in the right upper buttock. We anesthetized the skin with Marcaine, made an incision and blunt dissected this down the Elmo fascia. We then dissected inferior and superiorly to make a pocket. We used a tunneling device to make a tunnel between the 2 pockets. We threaded the lead through this tunneling device and brought it to the battery pocket site. We connected it to the battery and torqued it down, all impedances were good. We slipped the battery into the pocket easily. We approximated both incisions using simple interrupted 2-0 Vicryl sutures. We then approximated the subcu layer using a subcuticular stitch using 3-0 Rapide and we placed Dermabond over the wounds. Sterile 4x4s were placed over this with Medipore tape. The patient was taken to recovery under stable condition. Job ID: [id number]
== END 2019-04-30 17:35 | disposition home or self-care (01) ==
LOC: SDC 11:00
PROVIDERS: ATTEND Specialist
PROC: 0JH70BZ Insertion of Single Array Stimulator Generator into Back Subcutaneous Tissue and Fascia, Open Approach (ICD-10-PCS; principal; 2019-04-30)
PROC: 00HU0MZ Insertion of Neurostimulator Lead into Spinal Canal, Open Approach (ICD-10-PCS; principal; 2019-04-30)
DX: M96.1 Postlaminectomy syndrome, not elsewhere classified (principal); G89.4 Chronic pain syndrome; M54.16 Radiculopathy, lumbar region; M54.12 Radiculopathy, cervical region; Z88.1 Allergy status to other antibiotic agents; Z91.048 Other nonmedicinal substance allergy status
CPT/HCPCS: 76000; C1767; C1778; J0670; J2250; J2704; J3010

== ENCOUNTER 2019-05-27 05:48 | Outpatient (CLI) | payer BC ==
[2019-05-27 10:03] LABS: Hemoglobin 11.8 g/dL (12.0-16.0); Mean Corpuscular Hemoglobin 31.9 pg (27.0-31.0); Mean Corpuscular Volume 96.8 fL (78.0-98.0); Mean Platelet Volume 8.2 fL (7.4-10.4); Platelet Count 147 thou/uL (130-400); RBC Distribution Width 13.4 % (11.5-14.5); Red Blood Cell (RBC) Count 3.71 mill/uL (4.20-5.40); White Blood Cell (WBC) Count 4.9 thou/uL (4.8-10.8)
[2019-05-27 10:10] LABS: INR-International Normal Ratio 1.1; PTT 27.2 SEC (22.9-36.1); Prothrombin Time 13.7 SEC (12.0-14.7)
[2019-05-27 10:29] LABS: Anion Gap 12 mmol/L (10-20); BUN (Urea Nitrogen) 12 mg/dL (9.8-20.1); Calc. Creatinine Clearance 0 mL/min (70-130); Calcium 8.7 mg/dL (7.8-10.44); Carbon Dioxide 24 mmol/L (22-29); Chloride 105 mmol/L (98-107); Estimated GFR-MDRD 77; Glucose 80 mg/dL (70-105); Potassium 4.3 mmol/L (3.5-5.1); Sodium 137 mmol/L (136-145)
== END 2019-05-27 05:49 | disposition home or self-care (01) ==
LOC: LABBT 05:48
PROVIDERS: ATTEND Neurological Surgery
DX: Z01.812 Encounter for preprocedural laboratory examination (principal); M50.20 Other cervical disc displacement, unspecified cervical region; M54.12 Radiculopathy, cervical region
CPT/HCPCS: 80048; 85027; 85610; 85730

== ENCOUNTER 2019-05-28 05:33 | Inpatient (IN) | payer BC ==
--- NOTE | 2019-05-23 17:16 | HP ---
HISTORY OF PRESENT ILLNESS: Ms. Gomze is a 54-year-old female, who has been in our office multiple times. She recently had a spinal cord stimulator placed, which has helped significantly with her back pain. However, she is concerned about her severe neck pain and left arm pain. She has already done quite a bit of physical therapy and had cervical spine injections. The pain is not going away. She feels her hand and thumb are numb and making her drop things. The pain is under the scapula down the arm, it is severe. The neck too is preventing having a good quality of life. PAST MEDICAL HISTORY: Nephrolithiasis, depression, short bowel syndrome, hypertension, Crohn disease, chronic back pain, iron deficiency anemia, vitamin D deficiency, ADHD. PAST SURGICAL HISTORY: Multiple sinus surgeries, colonoscopy, gallbladder, section, gastric bypass, ex lap, gastric bypass revision, L4-5 synovial cyst decompression and removal, cataract surgery. FAMILY HISTORY: Father alive, but diagnosed with prostate cancer, obesity, hypertension. Mother is alive, diagnosed with breast cancer. SOCIAL HISTORY: Former smoker, quit in 1998. Denies alcohol or drug use. She is and has one child. MEDICATIONS: 1. Banks. 2. Bactrim. ALLERGIES: LEVOFLOXACIN, ADHESIVE BANDAGES. PHYSICAL EXAMINATION: CONSTITUTIONAL: The patient is awake, alert, oriented x3. RESPIRATIONS: Normal work of breathing on room air. NEUROLOGIC: Gait and station are normal. Motor exam, mild biceps and wrist extension weakness on the left. Sensory exam, both mild Tinel's, also some dorsal C6 numbness. DIAGNOSTIC DATA: MRI did show C5-6 left herniated nucleus pulposus with C6 root stretch. Flexion-extension x-ray suggests mild instability at C4-5 and clefts at the C5-6. ASSESSMENT AND PLAN: Dr. Muniz has offered surgery for cervical spinal degenerative disease with radiculopathy, spondylolisthesis of the cervical region. He has offered surgery, anterior cervical discectomy and fusion C4 through C6. The patient states that she understands the risks and is willing to proceed with surgery. Job ID: [id number]
[2019-05-27 09:07] VITALS: BMI 45.5
[2019-05-28] MEDS ORDERED: Thrombin 5000 UNITS/5 ML VIAL ONE (06:13)
[2019-05-28] MEDS ORDERED: Sodium Chloride 0.9% 10 ML ONE (06:13)
[2019-05-28] MEDS ORDERED: Fentanyl 100 MCG/2 ML VIAL ONE ×7 (06:18→13:57)
[2019-05-28] MEDS ORDERED: Midazolam HCl 2 mg/2 ml Vial ONE (06:47)
[2019-05-28] MEDS ORDERED: Dexamethasone 20 MG/5 ML VIAL ONE (09:33)
[2019-05-28] MEDS ORDERED: Lidocaine 1% PF 5 ML VIAL ONE (09:33)
[2019-05-28] MEDS ORDERED: ePHEDrine/0.9% NaCl/PF SYRINGE 50 mg/10 ml ONE (09:33)
[2019-05-28] MEDS ORDERED: Ondansetron PF 4 MG/2 ML Vial ONE (09:33)
[2019-05-28] MEDS ORDERED: PROPOFOL 200 MG/20 ML VIAL ONE (09:33)
[2019-05-28] MEDS ORDERED: Rocuronium Bromide 10 MG/ML (10ML VIAL) ONE (09:33)
[2019-05-28] MEDS ORDERED: Meperidine HCl/PF 25 MG/ML VIAL ONE (10:26)
[2019-05-28] MEDS ORDERED: HYDROmorphone 0.5 MG/0.5 ML SYRINGE ONE ×8 (10:37→12:20)
--- NOTE | 2019-05-28 10:59 | OP ---
DATE OF PROCEDURE: 05/28/2019 AUTO PAINTER HELPER: Belgica Castillo PA-C. PREOPERATIVE INDICATION: Prevent neurological deterioration. PREOPERATIVE DIAGNOSIS: Unstable spondylolisthesis at C4-C5, C6 radiculopathy from intervertebral disk herniation at C5-C6. POSTOPERATIVE DIAGNOSIS: Unstable spondylolisthesis at C4-C5, C6 radiculopathy from intervertebral disk herniation at C5-C6. OPERATIVE PROCEDURE: Anterior cervical diskectomy, intervertebral arthrodesis, placement of intervertebral biomechanical device. C4-5, C5-6 anterior cervical plating. C4-5, C5-6 local morselized autograft, morselized allograft. Operating microscope. PREOPERATIVE MEDICATIONS: Ancef 2 g IV. DRAIN NUMBER: None. DRAIN TYPE: None. DESCRIPTION OF PROCEDURE: The patient was brought to the operating room. General endotracheal anesthesia was induced. The patient was carefully positioned on the operating table with her head supported by a gel-filled doughnut shaped headrest. A lateral fluoro radiograph was used to plan our incision. The right side of the neck was sterilely prepped and draped. We opened our incision with a 10-blade knife and controlled bleeding with bipolar cautery. We dissected sharply to the platysma and then we cut this muscle in line with our incision. We continued our dissection medial to the sternocleidomastoid and lateral to the trachea and esophagus until we arrived at the prevertebral space. We placed a marker at C3-C4 and took a lateral fluoro radiograph. From here, we counted down to the C4, C5, and C6 segments of the cervical spine. We elevated the longus colli muscles off the anterior surface of the vertebral bodies and placed a self-retaining retractor beneath them at the level C5. Distraction pins were placed at C4 and C6 and we distracted across the intervening interspaces. We incised the interspaces with a 15-blade knife and removed disk contents using curettes and rongeurs. The operating microscope was brought into the field. Under microscopic magnification and using microsurgical techniques, we removed the remainder of the intervertebral disk. We removed the posterior longitudinal ligament. We accessed the ventral epidural space with a microcurette behind the ligament and then used that access to remove posterior osteophytes and posterior longitudinal ligament across the entire interspace from one nerve root to the other. This process was completed at C4-C5 and C5-6 until there was excellent dural decompression. We turned our attention to arthrodesis. We used curettes to prepare the endplates for grafting and then a bone rasp to measure the height of the interspace to 8 mm at C4-C5 and 7 mm at C5-C6. The appropriately-sized PEEK intervertebral grafts were brought into the field. The osteophytes removed during our decompression were cleaned of soft tissue attachments, morcellized and then added into demineralized bone matrix to form a fusion substrate. The substrate was used to fill the interbody devices and those devices were advanced into the respective interspaces under radiographic guidance to the appropriate depth. We then removed our distraction pins and took the operating microscope out of the field. A 31 mm anterior cervical plate was brought into the field. We drilled manufacturing engineering director holes through the plate into the vertebral bodies at C4, C5 and C6 and we affixed the plate using 14 mm screws. Fixed angle screws were used at C6 and variable angle screws at C4 and C5. We engaged the locking mechanism over each of the 6 screws. AP and lateral fluoro radiographs confirmed adequate position of our instrumentation. We irrigated with bacitracin irrigation. We closed the wound in anatomical layers. We applied a sterile dressing. This was a clean case, no contamination. Job ID: [id number]
[2019-05-28] MEDS ORDERED: tiZANidine HCl 4 MG TAB ONE (11:40)
[2019-05-28] MEDS ORDERED: Acetaminophen/Codeine 30-300mg Tablet PO PRN (15:49)
[2019-05-28] MEDS ORDERED: Mag-Al 1200 mg/1200 mg/30 ML UDCUP PO PRN (15:49)
[2019-05-28] MEDS ORDERED: Milk Of Magnesia 30 ML UDCUP PO PRN (15:49)
[2019-05-28] MEDS ORDERED: Bisacodyl 10 MG SUPP PR PRN (15:49)
[2019-05-28] MEDS ORDERED: Prochlorperazine 10 MG/2 ML VIAL IM PRN (15:49)
[2019-05-28] MEDS ORDERED: Promethazine HCl 25 MG/ML VIAL IM PRN (15:49)
[2019-05-28] MEDS ORDERED: Promethazine HCl 12.5 MG SUPP PR PRN (15:49)
[2019-05-28] MEDS ORDERED: Promethazine 25 MG TAB PO PRN (15:49)
[2019-05-28] MEDS ORDERED: Acetaminophen 325 MG TAB PO PRN (15:49)
[2019-05-28] MEDS ORDERED: Acetaminophen 650 MG Suppository PR PRN (15:49)
[2019-05-28] MEDS ORDERED: Morphine 2 MG/ML SYRINGE SLOW IVP PRN (15:49)
[2019-05-28] MEDS ORDERED: diphenhydrAMINE 50 MG/ML VIAL IVP PRN (15:49)
[2019-05-28] MEDS ORDERED: diphenhydrAMINE 25 MG CAP PO PRN (15:49)
[2019-05-28] MEDS ORDERED: Ondansetron PF 4 MG/2 ML Vial IVP PRN (15:49)
[2019-05-28] MEDS ORDERED: CEFAZOLIN 2 GM in Premix Bag 1 BAG IVPB SCH (16:00)
[2019-05-28] MEDS: Acetaminophen/Codeine 30-300mg Tablet PO PRN ×2 (16:01→20:20)
[2019-05-28] MEDS ORDERED: Morphine 4 MG/ML VIAL SLOW IVP PRN (16:04)
[2019-05-28] MEDS: Sodium Chloride 0.9% 1,000 ML IV SCH ×2 (16:46)
[2019-05-28] MEDS: hydrOXYzine 25 MG TAB PO SCH (20:20)
[2019-05-28] MEDS: tiZANidine HCl 4 MG TAB PO PRN (20:20)
[2019-05-28] MEDS ORDERED: traZODone HCl 150 MG TAB PO SCH (21:00)
[2019-05-29] MEDS: Acetaminophen/Codeine 30-300mg Tablet PO PRN ×2 (02:20→06:26)
[2019-05-29] MEDS: tiZANidine HCl 4 MG TAB PO PRN (02:21)
[2019-05-29] MEDS: Sodium Chloride 0.9% 1,000 ML IV SCH ×2 (07:02→07:03)
[2019-05-29 07:30] VITALS: BP 124/82; TEMP 98.6
--- NOTE | 2019-05-29 07:32 | PRG ---
DATE OF SERVICE: 05/29/2019 Ms. Gomez is 1 day out from a 2-level ACDF. Her pain control in the PACU was poor and she needed to stay overnight to feel well enough to leave. This morning, she is resting comfortably. She is ordering her breakfast and watching television. Her voice sounds perfectly normal. She has good neurological function in her upper extremities. Her pain that was going down the arm is gone and she is ready for discharge after breakfast. Job ID: [id number]
[2019-05-29] MEDS ORDERED: Hydrochlorothiazide 25 MG TAB PO SCH (09:00)
[2019-05-29] MEDS ORDERED: Loratadine 10 MG TAB PO SCH (09:00)
[2019-05-29] MEDS ORDERED: FLU VACC QS2019-20(6MOS UP)/PF 60 MCG/0.5 ML SYRINGE IM ONE (09:00)
[2019-05-29] MEDS ORDERED: AMPHETAMINE SULFATE PO SCH (09:00)
[2019-05-29] MEDS: hydrOXYzine 25 MG TAB PO SCH (09:31)
== END 2019-05-29 10:20 | disposition home or self-care (01) | DRG 472 ==
LOC: SDC 05:33 → SURG A 15:48
PROVIDERS: ADMIT Neurological Surgery; ATTEND Neurological Surgery
PROC: 0RG20A0 Fusion of 2 or more Cervical Vertebral Joints with Interbody Fusion Device, Anterior Approach, Anterior Column, Open Approach (ICD-10-PCS; principal; 2019-05-28)
PROC: 0RB30ZZ Excision of Cervical Vertebral Disc, Open Approach (ICD-10-PCS; 2019-05-28)
PROC: 01N10ZZ Release Cervical Nerve, Open Approach (ICD-10-PCS; 2019-05-28)
PROC: 3E0234Z Introduction of Serum, Toxoid and Vaccine into Muscle, Percutaneous Approach (ICD-10-PCS; 2019-05-29)
DX: M43.12 Spondylolisthesis, cervical region (principal); Z68.42 Body mass index [BMI] 45.0-49.9, adult; M50.122 Cervical disc disorder at C5-C6 level with radiculopathy; Z96.652 Presence of left artificial knee joint; E66.01 Morbid (severe) obesity due to excess calories; F41.9 Anxiety disorder, unspecified; F32.9 Major depressive disorder, single episode, unspecified; F90.0 Attention-deficit hyperactivity disorder, predominantly inattentive type; Z23 Encounter for immunization; Z87.891 Personal history of nicotine dependence; Z88.1 Allergy status to other antibiotic agents; Z91.048 Other nonmedicinal substance allergy status
CPT/HCPCS: 76000; 80048; 85027; 85610; 85730; 90471; 90686; 93005; 93010; C1713; C1776; G0008; J0690; J1100; J1170; J2001; J2175; J2250; J2270; J2405; J2704; J3010; J3490; L0174

== ENCOUNTER 2019-07-22 09:25 | Outpatient (CLI) | payer BC ==
--- NOTE | 2019-07-22 11:27 | RAD ---
CERVICAL SPINE SERIES 4 VIEWS: Date: 07/22/2019 HISTORY: Follow-up surgery. FINDINGS: Vertebral bodies are normal in height. The patient has undergone anterior cervical fusion extending f rom C4 to C6. Markers of disc implant are within the confines of the disc level. IMPRESSION: Postoperative changes of the spine. POS: GINO
== END 2019-07-22 09:26 | disposition home or self-care (01) ==
LOC: TBSIIMAG 09:25
PROVIDERS: ATTEND Neurological Surgery
DX: M54.2 Cervicalgia (principal); Z98.890 Other specified postprocedural states
CPT/HCPCS: 72040

== ENCOUNTER 2019-07-30 11:29 | Outpatient (CLI) | payer BC ==
--- NOTE | 2019-07-30 13:09 | CT ---
CLINICAL HISTORY: Elevated alpha-fetoprotein; hematuria. TECHNIQUE: Multiple contiguous axial images were obtained and a CT of the abdomen without and with IV contrast. Postcontrast images were obtained in the arterial and portal venous phases. Coronal and sagittal reformats were performed. COMPARISON: 04/25/2008 FINDINGS: Liver: Size: Normal. Contour: Smooth. Mass: None. There is diffuse fatty infiltration of the liver. Gallbladder and biliary system: Absent No biliary ductal dilatation. Spleen: Normal. Pancreas: Normal. Kidneys: Normal. Adrenal glands: Normal. GI tract: Normal. Abdominal aorta and its major branches: Normal. No aneurysm. Peritoneum/retroperitoneum: Normal. No ascites. No adenopathy. Body wall and musculoskeletal: Postsurgical changes in the lumbar spine. A spinal stimulation device is seen with its tip in the mid thoracic spine. Visualized lower thorax: Normal. No pulmonary parenchymal mass or pleural effusion. IMPRESSION: Fatty liver
== END 2019-07-30 11:30 | disposition home or self-care (01) ==
LOC: SCSCT 11:29
PROVIDERS: ATTEND Physician Assistant Medical
DX: K76.0 Fatty (change of) liver, not elsewhere classified (principal); R77.2 Abnormality of alphafetoprotein; K52.9 Noninfective gastroenteritis and colitis, unspecified
CPT/HCPCS: 74170

== ENCOUNTER 2019-08-01 11:15 | Outpatient (CLI) | payer BC ==
--- NOTE | 2019-08-01 12:03 | MMO ---
Bilateral MAMMO Bilat Screen [facility]. CLINICAL HISTORY: Patient is 54 years old and is seen for screening. The patient has the following family history of breast cancer: mother, at age 59. The patient has no personal history of cancer. The patient has a history of right Stereotatic Biopsy in 2009 - papilloma. VIEWS: The views performed were: bilateral craniocaudal with tomosynthesis and bilateral mediolateral oblique with tomosynthesis. FILMS COMPARED: The present examination has been compared to prior imaging studies performed at [facility] on 05/14/2010, 05/13/2014, 04/01/2016 and 04/06/2017. This study has been interpreted with the assistance of computer-aided detection. MAMMOGRAM FINDINGS: There are scattered fibroglandular densities. There is a biopsy clip seen in the right breast. There are no suspicious masses, suspicious calcifications, or new areas of architectural distortion. IMPRESSION: THERE IS NO MAMMOGRAPHIC EVIDENCE OF MALIGNANCY. A ROUTINE FOLLOW-UP MAMMOGRAM IN 1 YEAR IS RECOMMENDED. THE RESULTS OF THIS EXAM WERE SENT TO THE PATIENT. ACR BI-RADS Category 2 - Benign finding MAMMOGRAPHY NOTE: 1. A negative mammogram report should not delay a biopsy if a dominant of clinically suspicious mass is present. 2. Approximately 10% to 15% of breast cancers are not detected by mammography. 3. Adenosis and dense breasts may obscure an underlying neoplasm. Reported by: JULIAN PAT MD Electonically Signed: [id number]
== END 2019-08-01 11:16 | disposition home or self-care (01) ==
LOC: BICMAMMO 11:15
PROVIDERS: ATTEND Family Medicine
DX: Z12.31 Encounter for screening mammogram for malignant neoplasm of breast (principal); Z80.3 Family history of malignant neoplasm of breast; Z98.890 Other specified postprocedural states
CPT/HCPCS: 77063; 77067

== ENCOUNTER 2019-09-26 10:32 | Outpatient (CLI) | payer BC ==
--- NOTE | 2019-09-26 11:00 | RAD ---
XR Chest 1 View HISTORY: Nonspecific reaction to gamma interferon. Positive TB skin test COMPARISON: None FINDINGS: The heart size is normal. The lungs are well expanded without focal areas of consolidation, pneumothorax or pleural effusions. IMPRESSION: No radiographic evidence of acute cardiopulmonary process.
== END 2019-09-26 10:33 | disposition home or self-care (01) ==
LOC: BICRAD 10:32
PROVIDERS: ATTEND Internal Medicine Rheumatology
DX: R76.12 Nonspecific reaction to cell mediated immunity measurement of gamma interferon antigen response without active tuberculosis (principal)
CPT/HCPCS: 71045

== ENCOUNTER 2020-03-12 05:47 | Day surgery (SDC) | payer BC, MEDICARE ==
[2020-03-11 09:27] VITALS: BMI 44.2
[2020-03-12] MEDS ORDERED: Lidocaine 1% w/Epinephrine 1:100K 20 ML VIAL ONE (06:34)
[2020-03-12] MEDS ORDERED: Fentanyl 100 MCG/2 ML VIAL ONE ×2 (06:49→09:10)
[2020-03-12] MEDS ORDERED: Midazolam HCl 2 mg/2 ml Vial ONE (06:49)
[2020-03-12] MEDS ORDERED: Bupivacaine/Epinephrine 0.25% 30 ML VIAL ONE (07:51)
[2020-03-12] MEDS ORDERED: HYDROcodone/Acetaminophen 7.5/325 mg Tablet ONE (09:40)
[2020-03-12] MEDS ORDERED: EPHEDRINE 25 MG/5 ML SYRINGE ONE (11:34)
[2020-03-12] MEDS ORDERED: Dexamethasone 20 MG/5 ML VIAL ONE (11:34)
[2020-03-12] MEDS ORDERED: Lidocaine 1% PF 5 ML VIAL ONE (11:34)
[2020-03-12] MEDS ORDERED: Ketorolac Tromethamine 30 MG/ML VIAL ONE (11:34)
[2020-03-12] MEDS ORDERED: PROPOFOL 200 MG/20 ML VIAL ONE (11:34)
[2020-03-12] MEDS ORDERED: Ondansetron PF 4 MG/2 ML Vial ONE (11:34)
[2020-03-12] MEDS ORDERED: PHENYLEPHRINE-NS 100 MCG/ML 10 ML SYRINGE ONE (11:34)
--- NOTE | 2020-03-12 12:46 | OP ---
DATE OF PROCEDURE: 03/12/2020 PREOPERATIVE DIAGNOSES: 1. Carpal tunnel syndrome, right. 2. Cubital tunnel syndrome, right. POSTOPERATIVE DIAGNOSES: 1. Carpal tunnel syndrome, right. 2. Cubital tunnel syndrome, right. PROCEDURES PERFORMED: 1. Right carpal tunnel release. 2. Right cubital tunnel release. ANESTHESIA: General. BLOOD LOSS: Minimal. SPECIMENS: None. DRAINS: None. COMPLICATIONS: None. PROCEDURE IN DETAIL: After appropriate consent was obtained, the patient was taken to the operating room where general anesthesia was induced. The arm was prepped and draped in the sterile fashion. The arm was exsanguinated. The tourniquet was inflated to 250 mmHg. A longitudinal incision was made. Hemostasis obtained. Dissection was carried down to the transverse carpal ligament. The transverse carpal ligament was incised. Hemostat was placed deep in the transverse carpal ligament. The knife was used to cut down unto the ligament and hemostat. Care was taken to protect the contents of the carpal canal. Attention was then turned proximally. Metzenbaum scissors were used to release the carpal ligament into the forearm fascia. The carpal tunnel was palpated. There were no masses. The tourniquet was released. Hemostasis was obtained. Copious irrigation performed. The skin was closed with 4-0 nylon. A sterile dressing was applied and the patient was placed in a splint. There were no complications. For the elbow, after exsanguination, tourniquet inflated to 250 mmHg, I made an incision centered over the medial epicondyle. Dissection was carried down to the medial epicondyle, carried just posterior under direct visualization and dissected the nerve proximally and distally. Proximally, the arcade distally to the 1st motor branches of the ulnar nerve. Tourniquet was released. Irrigation performed. Obtained hemostasis with the bipolar cautery. Subcutaneous tissue was closed with 2-0 Vicryl. Skin was closed with 3-0 nylon and a sterile dressing was applied. Job ID: [id number]
== END 2020-03-12 10:15 | disposition home or self-care (01) ==
LOC: SDC 05:47
PROVIDERS: ATTEND Orthopaedic Surgery
PROC: 01N50ZZ Release Median Nerve, Open Approach (ICD-10-PCS; principal; 2020-03-12)
PROC: 01N40ZZ Release Ulnar Nerve, Open Approach (ICD-10-PCS; principal; 2020-03-12)
DX: G56.01 Carpal tunnel syndrome, right upper limb (principal); G56.21 Lesion of ulnar nerve, right upper limb; I10 Essential (primary) hypertension; K50.90 Crohn's disease, unspecified, without complications; F90.0 Attention-deficit hyperactivity disorder, predominantly inattentive type; Z79.899 Other long term (current) drug therapy; Z88.1 Allergy status to other antibiotic agents; Z91.048 Other nonmedicinal substance allergy status
CPT/HCPCS: J0690; J1100; J1885; J2250; J2405; J2704; J3010

== ENCOUNTER 2020-09-29 08:35 | Outpatient (CLI) | payer BC, MEDICARE ==
[2020-09-29 09:05] LABS: #Eosinphils 0.1 10x3/uL (0.0-0.5); #Monocytes 0.5 10x3/uL (0.0-1.1); #Neutrophils 2.2 10x3/uL (1.5-8.4); %Basophils 0.7 % (0.0-2.0); %Eosinophils 2.8 % (0.0-6.0); %Lymphocytes 33.8 % (18.0-47.0); %Monocytes 11.7 % (0.0-10.0); %Neutrophils 50.8 % (40.0-75.0); Mean Corpuscular HGB CONC 31.5 g/dL (32.0-36.0); Mean Corpuscular Hemoglobin 29.6 pg (27.0-33.0); Mean Corpuscular Volume 94.1 fl (81.6-98.3); Mean Platelet Volume 10.5 fl (7.4-10.4); Platelet Count 202 10x3/uL (150-450); RBC Distribution Width 15.1 % (11.5-14.5); Red Blood Cell (RBC) Count 3.71 10x6/uL (3.90-5.03); White Blood Cell (WBC) Count 4.3 10x3/uL (3.5-10.5)
[2020-09-29 09:18] LABS: Anion Gap 12 mmol/L (10-20); BUN (Urea Nitrogen) 10 mg/dL (9.8-20.1); Calc. Creatinine Clearance 0 mL/min (70-130); Calcium 8.5 mg/dL (7.8-10.44); Carbon Dioxide 25 mmol/L (22-29); Chloride 109 mmol/L (98-107); Glucose 108 mg/dL (70-105); Potassium 3.8 mmol/L (3.5-5.1); Sodium 142 mmol/L (136-145)
[2020-09-29 19:01] LABS: SARS-CoV-2 PCR by NAA Not Detected (NotDetected)
== END 2020-09-29 08:36 | disposition home or self-care (01) ==
LOC: LABBT 08:35
PROVIDERS: ATTEND Orthopaedic Surgery
DX: Z01.812 Encounter for preprocedural laboratory examination (principal); G56.02 Carpal tunnel syndrome, left upper limb; G56.22 Lesion of ulnar nerve, left upper limb; Z20.822 Contact with and (suspected) exposure to COVID-19
CPT/HCPCS: 80048; 85025; 87635; U0003; U0005

== ENCOUNTER 2020-10-01 07:36 | Day surgery (SDC) | payer BC, MEDICARE ==
[2020-09-30 13:20] VITALS: BMI 43.4
[2020-10-01] MEDS ORDERED: Fentanyl 100 MCG/2 ML VIAL ONE ×2 (09:29→10:52)
[2020-10-01] MEDS ORDERED: PROPOFOL 200 MG/20 ML VIAL ONE (09:39)
[2020-10-01] MEDS ORDERED: Ketorolac Tromethamine 30 MG/ML VIAL ONE (09:39)
[2020-10-01] MEDS ORDERED: Ondansetron PF 4 MG/2 ML Vial ONE (09:39)
[2020-10-01] MEDS ORDERED: Dexamethasone 20 MG/5 ML VIAL ONE (09:39)
[2020-10-01] MEDS ORDERED: Lidocaine 1% w/Epinephrine 1:100K 20 ML VIAL ONE (09:53)
== END 2020-10-01 12:30 | disposition home or self-care (01) ==
LOC: SDC 07:36
PROVIDERS: ATTEND Orthopaedic Surgery
PROC: 01N50ZZ Release Median Nerve, Open Approach (ICD-10-PCS; principal; 2020-10-01)
PROC: 01N40ZZ Release Ulnar Nerve, Open Approach (ICD-10-PCS; principal; 2020-10-01)
DX: G56.02 Carpal tunnel syndrome, left upper limb (principal); G56.22 Lesion of ulnar nerve, left upper limb; S82.001A Unspecified fracture of right patella, initial encounter for closed fracture; I10 Essential (primary) hypertension; K50.90 Crohn's disease, unspecified, without complications; G89.29 Other chronic pain; M54.9 Dorsalgia, unspecified; G47.33 Obstructive sleep apnea (adult) (pediatric); F10.21 Alcohol dependence, in remission; Z87.891 Personal history of nicotine dependence; Z79.899 Other long term (current) drug therapy; Z88.1 Allergy status to other antibiotic agents; Z88.8 Allergy status to other drugs, medicaments and biological substances; Z91.018 Allergy to other foods
CPT/HCPCS: J0690; J1100; J1885; J2405; J2704; J3010

== ENCOUNTER → 2021-03-01 | Day surgery (SDC) | payer BC, MEDICARE ==
[~2021-03-01] MED LIST: Heparin 1,000 UNITS/ML VIAL ONE; Iopamidol 300 61% 50 ML VIAL FS ONE
== END ==
LOC: SPEC 08:41
PROVIDERS: ATTEND Internal Medicine Infectious Disease
PROC: 02HV33Z Insertion of Infusion Device into Superior Vena Cava, Percutaneous Approach (ICD-10-PCS; principal; 2021-03-01)
DX: N39.0 Urinary tract infection, site not specified (principal); B96.20 Unspecified Escherichia coli [E. coli] as the cause of diseases classified elsewhere; Z88.1 Allergy status to other antibiotic agents; Z88.8 Allergy status to other drugs, medicaments and biological substances; Z91.048 Other nonmedicinal substance allergy status
CPT/HCPCS: 36569; C1751; J1644; Q9967

== ENCOUNTER 2021-04-05 15:25 | Outpatient (CLI) | payer BC, MEDICARE | END 2021-04-05 15:26 | disposition home or self-care (01) | LOC: TBSIIMAG 15:25 | PROVIDERS: ATTEND Neurological Surgery | DX: M54.16 Radiculopathy, lumbar region (principal); M54.2 Cervicalgia; M43.16 Spondylolisthesis, lumbar region; Z98.1 Arthrodesis status | CPT/HCPCS: 72050; 72110 ==

== ENCOUNTER 2021-05-20 07:06 | Day surgery (SDC) | payer BC, MEDICARE ==
[2021-05-19 12:39] VITALS: BMI 43.9
[2021-05-20] MEDS ORDERED: Diazepam 5 MG TAB ONE (07:48)
[2021-05-20] MEDS ORDERED: Acetaminophen 500 MG TAB PO PRN (07:54)
[2021-05-20] MEDS ORDERED: Diazepam 5 MG TAB PO SCH (08:00)
[2021-05-20 08:05] VITALS: TEMP 97.9
[2021-05-20 11:43] VITALS: BP 112/65
== END 2021-05-20 10:00 | disposition home or self-care (01) ==
LOC: RAD 07:06 → EDSTATUS 08:00 → RAD 10:00
PROVIDERS: ATTEND Neurological Surgery
PROC: B01B1ZZ Fluoroscopy of Spinal Cord using Low Osmolar Contrast (ICD-10-PCS; principal; 2021-05-20)
DX: M47.26 Other spondylosis with radiculopathy, lumbar region (principal); M48.061 Spinal stenosis, lumbar region without neurogenic claudication; M43.16 Spondylolisthesis, lumbar region; M48.02 Spinal stenosis, cervical region; Z79.899 Other long term (current) drug therapy; Z88.1 Allergy status to other antibiotic agents; Z88.8 Allergy status to other drugs, medicaments and biological substances; Z91.048 Other nonmedicinal substance allergy status
CPT/HCPCS: 62305; 72126; 72132

== ENCOUNTER 2021-12-31 13:53 | Outpatient (CLI) | payer BC, MEDICARE | END 2021-12-31 13:54 | disposition home or self-care (01) | LOC: TBSIIMAG 13:53 | PROVIDERS: ATTEND Neurological Surgery | DX: M54.16 Radiculopathy, lumbar region (principal); Z98.890 Other specified postprocedural states | CPT/HCPCS: 72100 ==